=== PATIENT | female | born 1945 | race Caucasian/White ===

== ENCOUNTER → 2019-11-24 14:47 | Outpatient (BNVA) | payer MEDICARE, SELFPAY | PROVIDERS: Family Provider Internal Medicine; PCP Internal Medicine; Visit Provider Nurse Practitioner | DX: G89.29 Other chronic pain (principal); M54.5 Low back pain; Z79.891 Long term (current) use of opiate analgesic | CPT/HCPCS: 99214 ==

== ENCOUNTER → 2019-12-11 16:39 | Outpatient (BNVA) | payer MEDICARE, SELFPAY | PROVIDERS: Family Provider Internal Medicine; PCP Internal Medicine; Visit Provider Internal Medicine | DX: R42 Dizziness and giddiness (principal); E03.9 Hypothyroidism, unspecified | CPT/HCPCS: 80053; 83036; 84443; 85025 ==

== ENCOUNTER 2019-12-19 09:48 | Outpatient (CLI) | payer MEDICARE, SELFPAY ==
--- NOTE | 2019-12-19 09:30 | MR_ITS ---
WS: [id number] MRI HEAD WITH CONTRAST TECHNIQUE: Sagittal T1, T2 axial, T2 axial FLAIR, axial susceptibility weighted imaging, axial diffus ion weighted images, and coronal T2 images were obtained. Pre and post-T1 axial and post T1 coronal i mages. ADC and FSPGR images. CLINICAL INFORMATION: dizziness of unknown cause COMPARISON: MRI 2012 and MRV 2014 FINDINGS: No evidence of restricted diffusion to suggest acute ischemia. Ventricular system and basal cisterns are patent. Mild small vessel changes with moderate parenchymal volume loss. Small vessel changes are relatively stable since 2013. Tiny chronic lacunar infarct left cerebellum. Normal vascular flow voi ds at the skull base. No extra axial fluid collections. Mild mucosal thickening in the ethmoid air ce lls. Paranasal sinuses are well aerated. Mild mucosal thickening left mastoid air cells. No hemosiderin on susceptibly weighted images. No abnormal gadolinium enhancement. Normal optic chias m and pituitary infundibulum. No abnormal intracranial enhancement. Normal sella. Chronic changes of prior right transverse sinus thrombosis previously discussed. Dural sinuses are otherwise normal. MR/MR head wo/w con [id number] IMPRESSION: 1. No evidence of restricted diffusion to suggest acute ischemia. 2. Mild small vessel changes with moderate parenchymal volume loss relatively stable since 2012. 3. Tiny chronic lacunar infarct left cerebellum. 4. Paranasal sinuses are well aerated with trace mucosal thickening in the eth moid air cells. Mild mucosal thickening left mastoid tip. 5. No abnormal gadolinium enhancement. 6. 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 Dural venous sinuses otherwise appear patent.
== END 2019-12-19 09:49 | disposition home or self-care (01) ==
LOC: RADSHAW 09:50
PROVIDERS: Family Provider Internal Medicine; PCP Internal Medicine; Visit Provider Internal Medicine
DX: I63.9 Cerebral infarction, unspecified (principal); G08 Intracranial and intraspinal phlebitis and thrombophlebitis; R42 Dizziness and giddiness
CPT/HCPCS: 70553; A9579

== ENCOUNTER → 2020-01-11 09:51 | Outpatient (BNVA) | payer MEDICARE, SELFPAY | PROVIDERS: Family Provider Internal Medicine; PCP Internal Medicine; Visit Provider Otolaryngology | DX: R42 Dizziness and giddiness (principal) | CPT/HCPCS: 99203; 99214 ==

== ENCOUNTER → 2020-01-25 08:40 | Outpatient (BNVA) | payer MEDICARE, SELFPAY | PROVIDERS: Family Provider Internal Medicine; PCP Internal Medicine; Visit Provider Anesthesiology | DX: G89.29 Other chronic pain (principal); M54.5 Low back pain; M54.9 Dorsalgia, unspecified; R20.0 Anesthesia of skin; Z71.89 Other specified counseling; Z79.891 Long term (current) use of opiate analgesic | CPT/HCPCS: 62323; 99214; J2001 ==

== ENCOUNTER → 2020-02-15 14:23 | Outpatient (BNVA) | payer MEDICARE, SELFPAY | PROVIDERS: Family Provider Internal Medicine; PCP Internal Medicine; Referring Provider Otolaryngology; Visit Provider Nurse Practitioner | DX: R42 Dizziness and giddiness (principal); R51 Headache; Z87.891 Personal history of nicotine dependence | CPT/HCPCS: 99214; 99999 ==

== ENCOUNTER 2020-02-22 10:05 | Outpatient (CLI) | payer MEDICARE, SELFPAY ==
--- NOTE | 2020-02-22 10:30 | CT_ITS ---
WS: [id number] CT ANGIOGRAM CEREBRAL AND CAROTID ARTERIES CT head, noncontrast HISTORY: DIZZINESS TECHNIQUE: CT angiogram is performed of the carotid and cerebral arteries. During arterial injection imaging is obtained from the skull vertex to the aortic arch in 1.25 mm imaging. Coronal and sagittal reformats are submitted. Additional multi planar reformats of the carotid and cerebral arteries are submitted, MIP imaging also reviewed. NASCET criteria utilized. All CT scans at [facility] use at least one of these dose optimization techniques: automated exposure control; mA and/or kV ad justment per patient size (includes targeted exams where dose is matched to clinical indication); or iterative reconstruction. CONTRAST: Omnipaque 350; 95 mL IV. DLP: 1871.79 mGycm COMPARISON: 02/17/[address] head. No acute intracranial hemorrhage. Basal ganglia calcifications with atrophy and mild chronic microvas cular ischemic disease. Ventricles are normal size. Carotid Angiogram: Right carotid: Common carotid artery: Arises normally from the innominate. Common carotid artery is tortuous minimal calcified plaque at the bifurcation. Internal carotid artery: Calcified plaque at bifurcation. Proximal RIGHT ICA stenosis 44%. Very mild progression since the prior study. External carotid artery: Patent. Left carotid: Common carotid artery: Arises from the base of the innominate. Tortuous common carotid artery. Internal carotid artery: Calcification at the bifurcation. Stenosis 57% involving the origin of the I CA. External carotid artery: Patent. Right vertebral artery: RIGHT vertebral artery is small caliber throughout with no occlusion. Left vertebral artery: Normal size with no occlusion or significant stenosis. Subclavian arteries: No stenosis or significant abnormality. Upper thorax: Atherosclerosis aortic arch and the coronary arteries. Lungs are clear. Thyroid gland: Normal. Osseous structures: Straightening of the normal cervical lordosis with spondylosis. CEREBRAL ANGIOGRAM: Intracranial vertebral arteries: RIGHT vertebral artery is small caliber but patent. Basilar artery: No significant stenosis or occlusion. No aneurysm. Intracranial Internal carotid arteries: Minimal calcified plaque through the cavernous sinuses. No oc clusion. Middle cerebral arteries: Normal. Anterior cerebral arteries and ACOM: Normal. Posterior cerebral arteries and PCOM's: Normal. No significant filling defects in the dural venous sinuses. Mastoid air cells: Normal. Paranasal sinuses: Normal. Calvarium: Normal. CT/CT angio headneck* [id number] IMPRESSION: 1. LEFT ICA stenosis 57% with mild progression since 2012. 2. RIGHT ICA stenosis 43% with minimal progression since the prior study. 3. Very mild atherosclerosis intracranial carotid arteries. No significant aryan nosis.
[2020-02-22 11:11] LABS: Blood Urea Nitrogen 18 mg/dL (8-23)
[2020-02-22] MEDS: iohexol 350 mg/mL 100 mL Btl IV (11:26)
== END 2020-02-22 10:06 | disposition home or self-care (01) ==
LOC: RADWPI 10:10
PROVIDERS: Family Provider Internal Medicine; PCP Internal Medicine; Visit Provider Nurse Practitioner
DX: R42 Dizziness and giddiness (principal); I65.23 Occlusion and stenosis of bilateral carotid arteries
CPT/HCPCS: 70496; 70498; 82565; 84520; Q9967

== ENCOUNTER → 2020-03-13 15:25 | Outpatient (BNVA) | payer MEDICARE, SELFPAY | PROVIDERS: Family Provider Internal Medicine; PCP Internal Medicine; Visit Provider Nurse Practitioner | DX: G43.909 Migraine, unspecified, not intractable, without status migrainosus (principal); R42 Dizziness and giddiness | CPT/HCPCS: 99213; 99999 ==

== ENCOUNTER 2020-04-26 10:28 | Outpatient (CLI) | payer MEDICARE, SELFPAY ==
[2020-04-26 10:55] LABS: Basophils # 0.1 10^3/uL (0.0-0.1); Basophils % 1.2 %; Eosinophils # 0.2 10^3/uL (0.0-0.8); Eosinophils % 2.4 %; Hemoglobin 13.3 g/dL (11.5-15.3); Lymphocytes # 2.6 10^3/uL (0.8-4.8); Lymphocytes % 34.9 %; Mean Corpuscular HGB Conc 33.3 g/dL (30.0-36.0); Mean Corpuscular Hemoglobin 30.9 pg (28.0-34.0); Mean Corpuscular Volume 92.8 fL (81-99); Mean Platelet Volume 10.9 fL (7.4-10.4); Monocytes # 0.7 10^3/uL (0.2-0.9); Monocytes % 9.1 %; Neutrophils # 3.9 10^3/uL (1.8-7.7); Neutrophils % 52.3 %; Nucleated Red Blood Cells % 0 %; Platelet Count 258 10^3/cmm (130-400); Red Blood Count 4.31 10^6/uL (4.1-5.3); Red Cell Distribution Width 12.1 % (12.1-15.1); White Blood Count 7.4 10^3/uL (4.0-10.0)
[2020-04-26 11:34] LABS: Alanine Aminotransferase 17 U/L (0-33); Albumin Level 4.5 g/dL (3.5-5.2); Alkaline Phosphatase 66 IU/L (35-105); Anion Gap 18.4 (5-19); Aspartate Amino Transferase 26 U/L (0-32); Blood Urea Nitrogen 20 mg/dL (8-23); Calcium 10.4 mg/dL (8.5-10.5); Carbon Dioxide 26 mmol/L (22-29); Chloride 99 mmol/L (98-107); Globulin 2.4 g/dL (1.3-4.6); Glucose 124 mg/dL (65-115); Osmolality Calculated 288 mOsm/kg (285-295); Potassium 3.4 mmol/L (3.5-5.1); Sodium 140 mmol/L (136-145); Thyroid Stimulating Hormone 4.56 uIU/mL (0.27-4.20); Total Bilirubin 0.3 mg/dL (0.15-1.2); Total Protein 6.9 g/dL (6.6-8.7); Valproic Acid Level 82.1 ug/mL (50-100)
[2020-04-26 12:08] LABS: Vitamin B12 561 pg/mL (232-1245)
== END 2020-04-26 10:29 | disposition home or self-care (01) ==
LOC: LAB 10:31
PROVIDERS: Family Provider Internal Medicine; PCP Internal Medicine; Visit Provider Nurse Practitioner
DX: R42 Dizziness and giddiness (principal)
CPT/HCPCS: 36415; 80053; 80164; 82607; 84443; 85025

== ENCOUNTER 2020-05-03 06:00 | Outpatient (RCR) | payer MEDICARE, SELFPAY | END 2020-05-24 23:59 | disposition home or self-care (01) | LOC: SPT 06:00 | PROVIDERS: PCP Internal Medicine; Referring Provider Nurse Practitioner; Visit Provider Nurse Practitioner | DX: R42 Dizziness and giddiness (principal) | CPT/HCPCS: 95992; 97162 ==

== ENCOUNTER → 2020-05-13 10:59 | Outpatient (BNVA) | payer MEDICARE, SELFPAY | PROVIDERS: PCP Internal Medicine; Visit Provider Specialist | DX: G08 Intracranial and intraspinal phlebitis and thrombophlebitis (principal); R42 Dizziness and giddiness | CPT/HCPCS: 99215 ==

== ENCOUNTER 2020-05-25 06:00 | Outpatient (RCR) | payer MEDICARE, SELFPAY | END 2020-06-24 23:59 | disposition home or self-care (01) | LOC: SPT 06:00 | PROVIDERS: PCP Internal Medicine; Referring Provider Nurse Practitioner; Visit Provider Nurse Practitioner | DX: R42 Dizziness and giddiness (principal) | CPT/HCPCS: 95992 ==

== ENCOUNTER 2020-06-28 09:21 | Emergency (ER) | payer MEDICARE, SELFPAY ==
[2020-06-28 09:32] VITALS: BP 141/62; PULSE 80; RESP 16; TEMP 36.8; O2SAT 97; BMI 34.2
--- NOTE | 2020-06-28 09:50 | ECG_ITS ---
[facility] Test Date: 2020-06-28 Pat Name: Pratik Portillo Department: Room: Gender: Female Aco Coordinator: : 1945 Requested By: Corky Ramos Order Number: [id number] Earnest MD: Rikki Stark M.D. Measurements Intervals [place] Rate: 79 P: 11 [place]: 164 QRS: -53 QRSD: 100 T: 9 QT: 384 QTc: 442 Interpretive Statements SINUS RHYTHM S1-S2-S3 PATTERN, CONSISTENT WITH PULMONARY DISEASE, RVH, OR NORMAL VARIANT INCOMPLETE RIGHT BUNDLE BRANCH BLOCK [90+ ms QRS DURATION, TERMINAL R IN V1/V2, 40+ ms S IN I/aVL/V4/V5/V6] LEFT ANTERIOR FASCICULAR BLOCK [QRS AXIS <= -45, QR IN I, RS IN II] POSSIBLE ANTERIOR MYOCARDIAL INFARCTION , OF INDETERMINATE AGE [30 ms Q WAVE IN V3/V4, OR R < 0.2 mV IN V4] Compared to ECG 08/06/2017 11:30:03 Right ventricular hypertrophy now present Left anterior fascicular block now present Sinus arrhythmia no longer present Left-axis deviation no longer present Myocardial infarct finding still present Electronically Signed On 06-28-2020 21:13:57 CDT by Rikki Stark M.D. [id number]
--- NOTE | 2020-06-28 09:50 | XR_ITS ---
WS: [id number] Portable AP upright chest, 06/28/2020 Clinical Data: cough Comparison: PA and lateral chest, 02/27/2016. Findings: There is a minimal peripheral patchy opacity in the right upper lobe. No nodules, masses or effusions are seen. The heart is enlarged. The pulmonary vascularity is not increased. No pneumothor ax is seen. XR/XR chest 1V portable [id number] Impression: 1. Minimal patchy opacity in right upper lobe which could represent atelectasis or early pneumonia and recommend repeat chest x-ray in one to 2 days. 2. Poor inspiratory effort causing cardiomegaly..
--- NOTE | 2020-06-28 10:23 | ED_ITS ---
HPI - Nausea/Vomiting/Diarrhea General: Chief complaint: Nausea/Vomiting/Diarrhea Stated complaint: n/v , sore on bottom Time Seen by Provider: 06/28/20 09:23 History of Present Illness: HPI Narrative: 75-year-old female presents emergency room with complaint of decreased appetite for the last 2 weeks she is not had a fever but has had a slightly productive cough no abdominal pain or chest pain increasing rhinorrhea she is also had some anosmia. She has dyspnea on exertion with vomiting and diarrhea moderate nausea. She is not been taking any of her medications for the last 2 weeks because of the nausea. Her lives with her has not been ill recently she has no chronic respiratory illnesses. MD elicited complaint: nausea, vomiting and diarrhea Onset (ago): week(s) (2) Description of vomiting: food contents and bilious Description of diarrhea: semi-solid and lose Associated nausea: Yes Associated abdominal pain: No Severity: moderate Quality: cramping Exacerbating factors: eating Relieving factors: none Associated symtoms: Reports cough, fatigue, anorexia, malaise, myalgias, nausea and weakness; Denies altered mental status, anxiety, bloating, change in vision, chest pain, diaphoresis, decreased urine output, dizziness, dysuria, epistaxis, fecal incontinence, fevers/chills, headache(s), palpitations, rash, short of breath, syncope, tenesmus or tinnitus Review of Systems Const: Reports: fatigue and malaise; Denies: diaphoresis Eyes: Denies: change in vision ENMT: Denies: tinnitus or epistaxis Card: Denies: chest pain, palpitations or syncope Resp: Reports: productive cough; Denies: dyspnea or non-productive cough GI: Reports: nausea; Denies: bloating or fecal incontinence : Denies: dysuria Skin/Breast: Denies: rash or pruritus Neuro: Denies: headache(s) or dizziness Psych: Denies: anxiety PFSH ED PFSH: Medical History Back pain associated with peripheral numbness Chronic low back pain Dizziness Essential hypertension with goal blood pressure less than 130/80 Long-term current use of opiate analgesic Morbid obesity Pain management contract signed Primary osteoarthritis of right knee Sleep apnea, obstructive Surgical History Hx of hysterectomy Hx of knee surgery (~03/03/16) TOTAL RIGHT KNEE REPLACEMENT 03/03/16- DR TORRES ARTHROSCOPIC KNEE SURGERY RIGHT SIDE- 05/16/14 DR BLAND TKA LT KNEE 2006 DR ALISHA DOW- [place] Family History Family/Other Cancer AUNT - BREAST CANCER Father Cancer MELANOMA Hypertension CAD (coronary artery disease) Other Bipolar 1 disorder Denies family history of Anesthesia complication Bleeding disorder Social History Smoking and tobacco status: former smoker History of recent travel: No Physical Exam Const: COMMON NORMALS: no acute distress EXAM LIMITATIONS: no altered mental status GENERAL APPEARANCE: cooperative and comfortable ORIENTATION/CONSCIOUSNESS: Yes awake, Yes oriented to person, Yes oriented to place and Yes oriented to time HENMT: COMMON NORMALS: normocephalic, atraumatic and hearing grossly normal bilaterally HEAD & SCALP: normocephalic and atraumatic Eye: COMMON NORMALS: Equal, round and reactive pupils present, EOMs intact bilaterally, conjunctivae normal and no scleral icterus CONJUNCTIVA: Yes conjunctivae normal PUPIL: Yes Equal, round and reactive pupils present Neck/C-Spine: COMMON NORMALS: full ROM, no lymphadenopathy, supple and no JVD Lymph: LYMPHATIC: no lymphadenopathy noted and no lymphedema noted Resp: COMMON NORMALS: normal respiratory effort, No retractions, No use of accessory muscles and clear to auscultation bilaterally AUSCULTATION: clear to auscultation bilaterally Cardio: COMMON NORMALS: no JVD, regular rate, regular rhythm and No murmurs present (Cardio) RATE: regular rate RHYTHM: regular rhythm GI: COMMON NORMALS: Soft to palpation and No hepatosplenomegaly present AUSCULTATION: Yes normoactive bowel sounds PALPATION: Yes Soft to palpation, No Tenderness to palpation present (GI), No Guarding due to palpation present (GI) and Yes No hepatosplenomegaly present OTHER: Excoriations and irritations perirectal no rectal fissures no rectal abscesses there are shallow ulcerations without evidence of abscess or localized infection. Extremity: COMMON NORMALS: normal to inspection, capillary refill normal, no clubbing, cyanosis or edema, no calf tenderness and no pedal edema Neuro: SENSORIUM/ORIENTATION: Yes oriented to person, Yes oriented to place and Yes oriented to time Skin: COMMON NORMALS: no rashes or lesions noted GENERAL SKIN EXAM: no rashes or lesions noted Course Vital Signs: Vital signs: Vital Signs Temperature 98.3 F 06/28/20 09:32 Pulse Rate 77 06/28/20 12:56 Respiratory Rate 15 06/28/20 12:56 Blood Pressure 110/63 06/28/20 12:56 Pulse Oximetry 95 06/28/20 12:56 MDM - Nausea/Vomiting/Diarrhea MDM Narrative: Medical decision making narrative: Suspect she does have COVID- 19. We will go ahead and discharge her home however we are waiting on her PCR. Suspect she is already through the worst of them getting started on Levaquin to cover for secondary bacterial infection. Asked her to maintain quarantine until the COVID test returns. If she has any worsening problems return. She does have some ulcerations around the rectum did not appear to be acutely infected would recommend topical [id number] emollients to protect and promote healing. Lab Data: Labs: Lab Results 06/28/20 06/28/20 06/28/20 Range/Units 10:34 10:34 10:34 WBC 7.5 (4.0-10.0) 10^3/ uL RBC 3.83 L (4.1-5.3) 10^6/u L Hgb 11.6 (11.5-15.3) g/dL Hct 34.8 L (37.0-47.0) % MCV 90.9 (81-99) fL MCH 30.3 (28.0-34.0) pg MCHC 33.3 (30.0-36.0) g/dL RDW 12.7 (12.1-15.1) % Plt Count 314 (130-400) 10^3/c mm MPV 11.2 H (7.4-10.4) fL Neut % (Auto) 76.1 % Lymph % (Auto) 15.1 % [facility] % (Auto) 7.3 % Eos % (Auto) 0.7 % Baso % (Auto) 0.3 % Neut # (Auto) 5.73 (1.8-7.7) 10^3/u L Lymph # (Auto) 1.1 (0.8-4.8) 10^3/u L [facility] [place] [facility] # (Auto) 0.6 (0.2-0.9) 10^3/u L Eos # (Auto) 0.1 (0.0-0.8) 10^3/u L Baso # (Auto) 0.0 (0.0-0.1) 10^3/u L Nucleated RBC % (a uto) 0 % Nucleated RBCs # 0.0 /100WBC Fibrinogen 752 H (174-498) mg/dL D-Dimer 0.60 H (0-0.59) ug/mIFE U Sodium 139 (136-145) mmol/L Potassium 3.1 L (3.5-5.1) mmol/L Chloride 102 (98-107) mmol/L Carbon Dioxide 24 (22-29) mmol/L Anion Gap 16.1 (5-19) BUN 12 (8-23) mg/dL Creatinine 0.8 (0.5-0.9) mg/dL GFR Calculation Not Reportable Glucose 129 H (65-115) mg/dL Calculated Osmolal ity 286 (285-295) mOsm/k g Lactic Acid (0.5-2.2) mmol/L Calcium 8.3 L (8.5-10.5) mg/dL Ferritin 300 H (15-150) ng/mL Total Bilirubin 0.5 (0.15-1.2) mg/dL AST 54 H (0-32) U/L ALT 46 H (0-33) U/L Alkaline Phosphata se 82 (35-105) IU/L Lactate Dehydrogen ase 317 H (135-214) U/L C-Reactive Protein 61.7 H (0.0-4.9) mg/L Total Protein 6.5 L (6.6-8.7) g/dL Albumin 3.8 (3.5-5.2) g/dL Globulin 2.7 (1.3-4.6) g/dL Procalcitonin 0.07 (0-0.5) ng/mL SARS-CoV-2 RNA (RT -PCR) (NOT DETECTED) 06/28/20 06/28/20 Range/Units 10:34 10:34 WBC (4.0-10.0) 10^3/ uL RBC (4.1-5.3) 10^6/u L Hgb (11.5-15.3) g/dL Hct (37.0-47.0) % MCV (81-99) fL MCH (28.0-34.0) pg MCHC (30.0-36.0) g/dL RDW (12.1-15.1) % Plt Count (130-400) 10^3/c mm MPV (7.4-10.4) fL Neut % (Auto) % Lymph % (Auto) % [facility] [place] [facility] % (Auto) % Eos % (Auto) % Baso % (Auto) % Neut # (Auto) (1.8-7.7) 10^3/u L Lymph # (Auto) (0.8-4.8) 10^3/u L [facility] # (Auto) (0.2-0.9) 10^3/u L Eos # (Auto) (0.0-0.8) 10^3/u L Baso # (Auto) (0.0-0.1) 10^3/u L Nucleated RBC % (a uto) % Nucleated RBCs # /100WBC Fibrinogen (174-498) mg/dL D-Dimer (0-0.59) ug/mIFE U Sodium (136-145) mmol/L Potassium (3.5-5.1) mmol/L Chloride (98-107) mmol/L Carbon Dioxide (22-29) mmol/L Anion Gap (5-19) BUN (8-23) mg/dL Creatinine (0.5-0.9) mg/dL GFR Calculation Glucose (65-115) mg/dL Calculated Osmolal ity (285-295) mOsm/k g Lactic Acid 1.7 (0.5-2.2) mmol/L Calcium (8.5-10.5) mg/dL Ferritin (15-150) ng/mL Total Bilirubin (0.15-1.2) mg/dL AST (0-32) U/L ALT (0-33) U/L Alkaline Phosphata se (35-105) IU/L Lactate Dehydrogen ase (135-214) U/L C-Reactive Protein (0.0-4.9) mg/L Total Protein (6.6-8.7) g/dL Albumin (3.5-5.2) g/dL Globulin (1.3-4.6) g/dL Procalcitonin (0-0.5) ng/mL SARS-CoV-2 RNA (RT -PCR) Detected A (NOT DETECTED) Discharge Plan Discharge Patient Disposition: Home Clinical Impression: Suspected COVID-19 virus infection Condition: Stable Prescriptions: New levofloxacin 750 mg tablet 750 mg PO DAILY 7 Days Qty: 7 RF: 0 No Action [id number]-[id number]-[id number]-C-Mn 500-400-667 mg-mg-unit capsule PO .Q DAY RF: 0 magnesium oxide 500 mg tablet 500 mg PO QDAY RF: 0 Restasis 0.05 % dropperette 1 drop ophthalmic (eye) Q12H RF: 0 cranberry conc-ascorbic acid 4,200-20 mg capsule PO RF: 0 Complete Multivitamin Tablet 1 tab PO QDAY RF: 0 indomethacin 75 mg capsule, extended release 75 mg PO DAILY Qty: 14 RF: 0 venlafaxine 75 mg capsule,extended release 24hr 150 mg PO QAM Qty: 60 RF: 5 losartan 100 mg tablet 100 mg PO DAILY Qty: 90 RF: 3 levothyroxine 50 mcg tablet 50 mcg PO QDAY Qty: 90 RF: 3 metformin 500 mg tablet,ER jhon.retention 24 hr 2,000 mg PO .WITH LARGEST MEAL MDD 4 Qty: 360 RF: 3 pseudoephedrine HCl [Sudafed 12 Hour] 120 mg tablet extended release 120 mg PO DAILY PRN (Reason: nasal congestion) Qty: 30 RF: 3 lansoprazole 30 mg capsule,delayed release(DR/EC) 30 mg PO BID 90 Days Qty: 180 RF: 0 celecoxib [Celebrex] 200 mg capsule 200 mg PO BID Qty: 180 RF: 0 atorvastatin 40 mg tablet 40 mg PO DAILY Qty: 30 RF: 2 lorazepam [Ativan] 0.5 mg tablet 1.5 mg PO DAILY PRN (Reason: anxiety) Qty: 3 RF: 0 pregabalin [Lyrica] 50 mg capsule 50 mg PO TID Qty: 90 RF: 3 clobetasol 0.05 % gel 1 applic TOPICAL DAILY PRN (Reason: vulvitis) Qty: 60 RF: 2 tizanidine [Zanaflex] 4 mg capsule 4 mg PO Q6H PRN (Reason: muscle spasticity) Qty: 30 RF: 0 Zofran 4 mg tablet 4 mg PO Q6H PRN (Reason: nausea and vomiting) Qty: 20 RF: 0 Discharge Orders: Discharge Order (Routine); Ordered 06/28/20 Ordered By: Corky Braden Referrals: Kendrick Villaseñor MD [Primary Care Provider] - Discharge Diet: Usual diet Discharge Activity: Increase activity as tolerated Activity Restrictions/Additional Instructions: Maintain quarantine until we call with the results of your COVID testing. Discharge Date/Time: 06/28/20 12:57 Coding Level of Care Code ED Clinical Pharmacist for Chg Fwd Exam Comprehensive
[2020-06-28 10:39] VITALS: BP 119/64; PULSE 80; RESP 18; O2SAT 98
[2020-06-28 10:53] LABS: Basophils % 0.3 %; Eosinophils # 0.1 10^3/uL (0.0-0.8); Eosinophils % 0.7 %; Hematocrit 34.8 % (37.0-47.0); Hemoglobin 11.6 g/dL (11.5-15.3); Lymphocytes # 1.1 10^3/uL (0.8-4.8); Lymphocytes % 15.1 %; Mean Corpuscular HGB Conc 33.3 g/dL (30.0-36.0); Mean Corpuscular Hemoglobin 30.3 pg (28.0-34.0); Mean Corpuscular Volume 90.9 fL (81-99); Mean Platelet Volume 11.2 fL (7.4-10.4); Monocytes # 0.6 10^3/uL (0.2-0.9); Monocytes % 7.3 %; Neutrophils # 5.73 10^3/uL (1.8-7.7); Neutrophils % 76.1 %; Nucleated Red Blood Cells % 0 %; Platelet Count 314 10^3/cmm (130-400); Red Blood Count 3.83 10^6/uL (4.1-5.3); Red Cell Distribution Width 12.7 % (12.1-15.1); White Blood Count 7.5 10^3/uL (4.0-10.0)
[2020-06-28 11:09] LABS: Lactic Sepsis W/Reflex 1.7 mmol/L (0.5-2.2)
[2020-06-28 11:15] LABS: Procalcitonin 0.07 ng/mL (0-0.5)
[2020-06-28 11:24] VITALS: BP 110/63; PULSE 77; RESP 15; O2SAT 95
[2020-06-28 11:26] LABS: Alanine Aminotransferase 46 U/L (0-33); Albumin Level 3.8 g/dL (3.5-5.2); Alkaline Phosphatase 82 IU/L (35-105); Anion Gap 16.1 (5-19); Aspartate Amino Transferase 54 U/L (0-32); Blood Urea Nitrogen 12 mg/dL (8-23); C Reactive Protein 61.7 mg/L (0.0-4.9); Calcium 8.3 mg/dL (8.5-10.5); Carbon Dioxide 24 mmol/L (22-29); Chloride 102 mmol/L (98-107); Ferritin 300 ng/mL (15-150); Globulin 2.7 g/dL (1.3-4.6); Glucose 129 mg/dL (65-115); Osmolality Calculated 286 mOsm/kg (285-295); Potassium 3.1 mmol/L (3.5-5.1); Sodium 139 mmol/L (136-145); Total Bilirubin 0.5 mg/dL (0.15-1.2); Total Protein 6.5 g/dL (6.6-8.7)
[2020-06-28 11:30] LABS: Fibrinogen 752 mg/dL (174-498); Lactate Dehydrogenase 317 U/L (135-214)
[2020-06-28 12:30] VITALS: O2SAT 90; O2SAT 93
[2020-06-28 12:56] VITALS: BP 110/63; PULSE 77; RESP 15; O2SAT 95
[2020-06-29 21:08] LABS: Quest SARS-CoV-2 RNA DETECTED (NOT DETECTED)
== END 2020-06-28 12:57 | disposition home or self-care (01) ==
PROVIDERS: Emergency Provider Family Medicine; PCP Internal Medicine
DX: U07.1 COVID-19 (principal); I10 Essential (primary) hypertension; Z87.891 Personal history of nicotine dependence; R11.10 Vomiting, unspecified
CPT/HCPCS: 12345; 71045; 80053; 82728; 83605; 83615; 84145; 85025; 85378; 85384; 86140; 87040; 87205; 87635; 93005; 99282; 99284

== ENCOUNTER → 2020-09-09 13:42 | Outpatient (BNVA) | payer MEDICARE, SELFPAY | PROVIDERS: PCP Internal Medicine; Visit Provider Nurse Practitioner Family | DX: J06.9 Acute upper respiratory infection, unspecified (principal) | CPT/HCPCS: 87400; 87635 ==

== ENCOUNTER 2020-09-23 06:00 | Outpatient (RCR) | payer MEDICARE, SELFPAY | END 2020-09-23 23:59 | disposition home or self-care (01) | LOC: SPT 06:00 | PROVIDERS: PCP Internal Medicine; Referring Provider Internal Medicine; Visit Provider Internal Medicine | DX: R42 Dizziness and giddiness (principal) | CPT/HCPCS: 95992; 97162 ==

== ENCOUNTER 2020-09-24 06:00 | Outpatient (RCR) | payer MEDICARE, SELFPAY | END 2020-10-24 23:59 | disposition home or self-care (01) | LOC: SPT 06:00 | PROVIDERS: PCP Internal Medicine; Referring Provider Internal Medicine; Visit Provider Internal Medicine | DX: R42 Dizziness and giddiness (principal) | CPT/HCPCS: 95992 ==

== ENCOUNTER 2020-11-15 12:07 | Outpatient (CLI) | payer MEDICARE, SELFPAY ==
--- NOTE | 2020-11-15 12:14 | MM_ITS ---
WS: [id number] BILATERAL SCREENING DIGITAL MAMMOGRAM WITH CAD HISTORY: SCREEN COMPARISON: 11/12/2018 and 06/19/2015 Bilateral CC and MLO views submitted. Computer aided detection analyzed. Breast composition: There are scattered areas of fibroglandular density. No suspicious masses, microc alcifications or architectural distortion. Stable nodules and calcifications. MM/[place] [id number] IMPRESSION: BI-RADS: 2-Benign FOLLOW UP: 1 Year Follow-up
== END 2020-11-15 12:08 | disposition home or self-care (01) ==
LOC: RADSHAW 12:11
PROVIDERS: PCP Internal Medicine; Visit Provider Internal Medicine
DX: Z12.31 Encounter for screening mammogram for malignant neoplasm of breast (principal)
CPT/HCPCS: 77067

== ENCOUNTER → 2020-12-26 11:33 | Outpatient (BNVA) | payer MEDICARE, SELFPAY | PROVIDERS: PCP Internal Medicine; Visit Provider Specialist | DX: M25.561 Pain in right knee (principal); M25.562 Pain in left knee | CPT/HCPCS: 73560; 73565 ==

== ENCOUNTER → 2021-01-13 11:22 | Outpatient (BNVA) | payer MEDICARE, SELFPAY | PROVIDERS: PCP Internal Medicine; Visit Provider Specialist | DX: M25.512 Pain in left shoulder (principal) | CPT/HCPCS: 73030 ==

== ENCOUNTER → 2021-02-24 13:31 | Outpatient (BNVA) | payer MEDICARE, SELFPAY | PROVIDERS: PCP Internal Medicine; Visit Provider Specialist | DX: M19.012 Primary osteoarthritis, left shoulder (principal); M67.912 Unspecified disorder of synovium and tendon, left shoulder | CPT/HCPCS: 73030 ==

== ENCOUNTER 2021-03-18 14:54 | Outpatient (CLI) | payer MEDICARE, SELFPAY ==
--- NOTE | 2021-03-18 15:15 | MR_ITS ---
WS: [id number] MRI LEFT SHOULDER HISTORY: M19.012 - Primary osteoarthritis, left shoulder COMPARISON: 01/07/2015 TECHNIQUE: Multiplanar sequences of the shoulder joint are submitted. Mild AC joint arthritis. Narrowing of the joint space with small osteophytes. Small amount of fluid a long the AC ligament. Small 3 mm osteophyte from the distal acromion without significant encroachment . No os acromion. Biceps tendon is in normal position but there is a moderate amount of increased flu id in the biceps tendon sheath. Humeral head is high riding. Moderate narrowing of the glenohumeral joint with osteophytic ridging ar ound the humeral head extending into the glenohumeral joint. There is mild thickening and increased s ignal in the distal supraspinatus tendon. Very tiny insertion site tear cannot be excluded. No retrac tion or muscle atrophy. Abnormal signal in the anterior labrum. There is thickening of the labrum with abnormal signal throug hout the labrum. There is an adjacent cystic collection extending into the subscapularis recess which may be associated with a labral tear. MR/MR shoulder LT wo con* [id number] IMPRESSION: 1. Torn anterior labrum moderate glenohumeral joint osteoarthritis. 2. Cystic mass extends along the subscapular recess may be a labral cyst assoc iated with the labral tear. 3. Mild tendinopathy distal supraspinatus with no definite tear. 4. Mild AC joint arthritis.
== END 2021-03-18 14:55 | disposition home or self-care (01) ==
LOC: RADSHAW 15:01
PROVIDERS: PCP Internal Medicine; Visit Provider Specialist
DX: M19.012 Primary osteoarthritis, left shoulder (principal); S43.492A Other sprain of left shoulder joint, initial encounter; X58.XXXA Exposure to other specified factors, initial encounter
CPT/HCPCS: 73221

== ENCOUNTER 2021-05-26 06:00 | Outpatient (RCR) | payer MEDICARE, SELFPAY | END 2021-06-24 23:59 | disposition home or self-care (01) | LOC: SPT 06:00 | PROVIDERS: PCP Internal Medicine; Referring Provider Specialist; Visit Provider Specialist | DX: M25.512 Pain in left shoulder (principal) | CPT/HCPCS: 97110; 97161 ==

== ENCOUNTER → 2021-08-20 15:14 | Outpatient (BNVA) | payer MEDICARE, SELFPAY | PROVIDERS: PCP Internal Medicine; Visit Provider Nurse Practitioner Family | DX: Z20.822 Contact with and (suspected) exposure to COVID-19 (principal) | CPT/HCPCS: 87635 ==

== ENCOUNTER → 2022-01-08 13:39 | Outpatient (BNVA) | payer MEDICARE, SELFPAY | PROVIDERS: PCP Internal Medicine; Visit Provider Orthopaedic Surgery | DX: M54.50 Low back pain, unspecified (principal); G89.29 Other chronic pain | CPT/HCPCS: 72110 ==

== ENCOUNTER 2022-01-22 09:05 | Outpatient (CLI) | payer MEDICARE, SELFPAY ==
--- NOTE | 2022-01-22 09:16 | MM_ITS ---
WS: [id number] BILATERAL SCREENING 3D TOMOSYNTHESIS DIGITAL MAMMOGRAM WITH CAD HISTORY: SCREENING COMPARISON: 11/15/2020, 06/19/2015 Bilateral CC and MLO views submitted. Computer aided detection analyzed. Breast composition: There are scattered areas of fibroglandular density. No suspicious masses, microc alcifications or architectural distortion. Bilateral asymmetries within each breast and calcification s are stable. MM/[place] [id number] IMPRESSION: BI-RADS: 2-Benign FOLLOW UP: 1 Year Follow-up
== END 2022-01-22 09:06 | disposition home or self-care (01) ==
LOC: RADSHAW 09:08
PROVIDERS: PCP Internal Medicine; Visit Provider Internal Medicine
DX: Z12.31 Encounter for screening mammogram for malignant neoplasm of breast (principal)
CPT/HCPCS: 77063; 77067

== ENCOUNTER 2022-02-24 08:23 | Outpatient (CLI) | payer MEDICARE, SELFPAY ==
--- NOTE | 2022-02-24 08:00 | MR_ITS ---
WS: [id number] MRI LUMBAR SPINE NONCONTRAST HISTORY: M54.50 - Low back pain, unspecified COMPARISON: 07/25/2015 TECHNIQUE: Sagittal and axial multisequence imaging is submitted. Component of mild spondylosis throughout the cervical and thoracic spines with scoliosis. Cannot eval uate for disc protrusions or stenosis due to imaging only on the localizer being suboptimal. Mild increase in the lumbar lordosis. Less than 2 mm retrolisthesis of L2 and L3. 3 mm anterolisthesi s of L4. Disc spaces are mildly narrowed and desiccated throughout. No fracture or marrow edema. Most significant disc space narrowing is at L2-3. Conus terminates normally at L1-2 disc level. L1-L2: Normal. L2-L3: Diffuse annular disc bulging and mild osteophytic ridging. No focal disc protrusion. Annular d isc bulging is causing contact on the ventral thecal sac with very mild central and bilateral subarti cular recess stenosis. No foraminal stenosis. L3-L4: Mild annular disc bulging with a LEFT foraminal disc protrusion causing mild narrowing of the LEFT foramen. No contact on the exiting LEFT L3 nerve root. There is mild encroachment upon the ventr al thecal sac and narrowing of the subarticular recesses. Small amount of fluid in the facet joints. L4-L5: Diffuse annular disc bulge. Moderate ligamentum flavum hypertrophy and facet arthritis with fl uid in the facet joints. Disc osteophyte complex is broad-based in the LEFT foramen. Moderate central , bilateral subarticular recess and LEFT foraminal stenosis. Only mild stenosis on the RIGHT L5-S1: Diffuse moderate annular disc bulging. Disc is asymmetrically extending into the RIGHT foramen contacting the exiting L5 nerve root. There is also mild disc contact on the RIGHT S1 nerve root. On ly mild LEFT foraminal narrowing. Bilateral facet joint arthritis. Paravertebral soft tissues are negative. MR/MR lumbar spine wo con* [id number] IMPRESSION: 1. Moderate progression of degenerative disc disease and spondylitic changes s leny 2014. 2. Mild central and bilateral subarticular recess stenosis at L2-3 and L3-4. 3. Moderate central, bilateral subarticular recess and LEFT foraminal stenosis at L4-5 due to combination of disc and osteophyte disease. Broad-based disc pr otrusion in the LEFT foramen was not present on the prior study. 4. Mild disc contact on the S1 nerve roots bilaterally with a RIGHT foraminal disc protrusion contacting the exiting RIGHT L5 nerve root. Previously describe d RIGHT disc herniation has resolved.
== END 2022-02-24 08:24 | disposition home or self-care (01) ==
LOC: RAD 08:24
PROVIDERS: PCP Internal Medicine; Visit Provider Orthopaedic Surgery
DX: M54.50 Low back pain, unspecified (principal)
CPT/HCPCS: 72148

== ENCOUNTER → 2022-03-17 14:51 | Outpatient (BNVA) | payer MEDICARE, SELFPAY | PROVIDERS: PCP Internal Medicine; Visit Provider Orthopaedic Surgery | DX: M43.16 Spondylolisthesis, lumbar region (principal) | CPT/HCPCS: 99214 ==

== ENCOUNTER → 2022-04-06 09:34 | Outpatient (BNVA) | payer MEDICARE, SELFPAY | PROVIDERS: PCP Internal Medicine; Visit Provider Specialist | DX: S82.852A Displaced trimalleolar fracture of left lower leg, initial encounter for closed fracture (principal); S82.832A Other fracture of upper and lower end of left fibula, initial encounter for closed fracture; W18.41XA Slipping, tripping and stumbling without falling due to stepping on object, initial encounter; M25.572 Pain in left ankle and joints of left foot | CPT/HCPCS: 27780; 73562; 73610; 99215 ==

== ENCOUNTER 2022-04-06 11:09 | Outpatient (CLI) | payer MEDICARE, SELFPAY | END 2022-04-06 11:10 | disposition home or self-care (01) | LOC: SPT 11:11 | PROVIDERS: PCP Internal Medicine; Visit Provider Specialist | DX: Z46.89 Encounter for fitting and adjustment of other specified devices (principal); S82.851D Displaced trimalleolar fracture of right lower leg, subsequent encounter for closed fracture with routine healing; X58.XXXD Exposure to other specified factors, subsequent encounter | CPT/HCPCS: 27780; 97760; L4361 ==

== ENCOUNTER 2022-04-08 10:53 | Outpatient (CLI) | payer MEDICARE, SELFPAY ==
--- NOTE | 2022-04-08 11:30 | CT_ITS ---
WS: [id number] CT LEFT ANKLE, NONCONTRAST WITH 3-D IMAGING. HISTORY: fracture Technique: All CT scans at [facility] use at least one of these dose optimization techniques: automated exposure control; mA and/or kV adjustment per patient size (includes targeted exams where dose is matched to clinical indication); or iterative reconstruction. DLP: 125.15 mGy.cm COMPARISON: Ankle radiograph 04/06/2022. Moderately comminuted fracture involving the medial malleolus. There are multiple bony fragments in t he soft tissues along the medial ankle with an oblique fracture through the medial malleolus. Additio nal comminuted fracture from the lateral distal tibia. Vertical fracture in the posterior tibia displ aced by 6 mm. There is also evidence for partial subluxation at the tibiotalar joint. There is wideni ng of the normal ankle mortise greatest anteriorly. The distal fibula does appear intact. No calcaneal or talar fracture identified. Moderate amount of soft tissue edema surrounding the ankle. CT/CT ankle LT wo con* [id number] IMPRESSION: 1. Markedly comminuted fracture involving the medial malleolus with multiple s mall associated fragments in the soft tissue. 2. Displaced posterior malleolus fracture by 6 mm. 3. Widening of the ankle mortise with partial subluxation. 4. Additional avulsion fracture from the lateral distal tibia.
== END 2022-04-08 10:54 | disposition home or self-care (01) ==
LOC: RAD 10:58
PROVIDERS: PCP Internal Medicine; Visit Provider Specialist
DX: S82.853A Displaced trimalleolar fracture of unspecified lower leg, initial encounter for closed fracture (principal); X58.XXXA Exposure to other specified factors, initial encounter
CPT/HCPCS: 73700

== ENCOUNTER 2022-04-10 06:18 | Day surgery (SDC) | payer MEDICARE, SELFPAY ==
[2022-04-09 11:07] VITALS: BMI 33.0
[2022-04-10] VITALS (13 sets, daily range): BP systolic 98–174; BP diastolic 61–96; PULSE 67–77; RESP 17–18; TEMP 36.6–36.7; O2SAT 94–100
--- NOTE | 2022-04-10 | SCC_ITS ---
Procedure done: Open Reduction Internal Fixaiton Left Trimalleolar Ankle fracture with syndesmotic fixation 319.0 seconds of fluoroscopic guidance, for a cumulative dose of 6.68 mGy, was provided to Dr. Browning by the radiology department. C-arm images of the left ankle were saved for the patient's permanent record. [facility]
[2022-04-10] MEDS: sodium chloride 0.9% 1,000 ML 30 ML IV (06:40)
[2022-04-10] MEDS: acetaminophen 1,000 MG/100 ML PIGGYBACK 400 MG IV (06:45)
[2022-04-10] MEDS: CELEcoxib 200 mg Capsule 400 MG PO (06:50)
[2022-04-10 07:00] LABS: Glucose Point of Care 134 mg/dL (70-110)
--- NOTE | 2022-04-10 07:16 | ANES.PREANE2 ---
Pre-Anesthetic Assessment Height/Weight: Height 1.55 m Weight 79.379 kg Preop Diagnosis: Left trimalleolar ankle fracture dislocation with syndesmotic disruption Operation Date: 04/10/22 07:00 Proposed Procedures p Orif left trimalleolar fracture, 99410,S82.850Q(Left) - Daria Browning MD Familial anesthetic complications: None Was Beta Lorin taken within 24 hours: N/A Was Clonidine taken within 24 hours: N/A Last intake: Intake Last Liquid Date 04/09/22 Last Solid Date 04/09/22 Last Solid Time 19:00 Social No alcohol and No tobacco Exam alert, oriented x 3, clear to auscultation bilaterally and regular rate & rhythm Airway Submandibular: within normal limits Cervical ROM: within normal limits Mallampati: Class III Dentition: chipped Pulmonary Sleep Apnea CV/HEM Hypertension GI Gastroesophageal Reflux Disease Metabolic Diabetes Mellitus, Morbid Obesity and Thyroid Disease Musc/skel Lower Back Pain and Osteoarthritis/DJD Anesthetic Plan ASA status: 3 Anesthesia: General and Regional (specify below) (discussed popliteal nerve blk for postop pain) Medications/Allergies Home Medications Medication Instructions Recorded Confirmed Last Taken Type glucosamine 500 1 cap PO BEDTIME cap 11/23/19 04/10/22 04/09/22 History th-wbhvbeqzt-twmyyejs comp 400 mg-D3 667 unit-C-Mn cap magnesium oxide 500 mg tablet 500 mg PO QDAY 11/23/19 04/10/22 04/09/22 History cranberry concentrate-ascorbic 1 cap PO BEDTIME 11/24/19 04/10/22 04/09/22 History acid 4,200 mg-20 mg capsule multivitamin,tz-gtfm-ikesxuaa 1 tab PO QDAY 11/24/19 04/10/22 04/09/22 History (Complete Multivitamin) tizanidine 4 mg capsule (Zanaflex) 4 mg PO Q6H PRN #30 cap 07/02/20 04/09/22 Unknown Rx CPAP #1 ea 03/25/21 04/09/22 Unknown Rx amlodipine 2.5 mg tablet 2.5 mg PO DAILY #90 tab 11/26/21 04/10/22 04/09/22 Rx atorvastatin 40 mg tablet 40 mg PO DAILY #90 tab 11/26/21 04/10/22 04/09/22 Rx celecoxib 200 mg capsule (Celebrex) 200 mg PO BID #180 cap 11/26/21 04/10/22 04/09/22 Rx lansoprazole 30 mg capsule,delayed 30 mg PO BID 90 Days #180 cap 11/26/21 04/10/22 04/09/22 Rx release levothyroxine 50 mcg tablet 50 mcg PO QDAY #90 tab 11/26/21 04/10/22 04/09/22 Rx losartan 100 mg tablet 100 mg PO DAILY #90 tab 11/26/21 04/10/22 04/09/22 Rx metformin 500 mg 24 hr 2,000 mg PO .WITH LARGEST MEAL 11/26/21 04/10/22 04/09/22 Rx tablet,extended release #360 tab MDD 4 pregabalin 50 mg capsule (Lyrica) 50 mg PO TID #90 cap 11/26/21 04/09/22 Unknown Rx venlafaxine 75 mg capsule,extended 150 mg PO QAM #180 cap 11/26/21 04/09/22 Unknown Rx release 24 hr pseudoephedrine HCl 120 mg 120 mg PO DAILY PRN #30 tab 01/27/22 04/09/22 Unknown Rx tablet,extended release (Sudafed 12 Hour) CAM walker #1 ea 04/06/22 04/09/22 Unknown Rx wheel chair with elevated foot rest #1 ea 04/06/22 04/09/22 Unknown Rx Allergies Allergy/AdvReac Type Severity Reaction Status Date / Time tetracycline AdvReac Intermediate HEADACHE Verified 04/09/22 10:55 AND NAUSEA lidocaine AdvReac Mild LYUDMILA Verified 04/09/22 10:55 IN GENERAL PALPATATIONS Current Medications Generic Name Dose Route Start Last Admin Trade Name Freq PRN Reason Stop Dose Admin Sodium Chloride 1,000 mls @ 30 mls/hr 04/10/22 06:45 04/10/22 06:40 Sodium Chloride 0.9% IV 04/11/22 06:44 30 mls/hr .Q24H BARNEY Administration PFSH Anesthesia Medical History Back pain associated with peripheral numbness Chronic low back pain Dizziness Essential hypertension with goal blood pressure less than 130/80 Long-term current use of opiate analgesic Morbid obesity Pain management contract signed Primary osteoarthritis of right knee Sleep apnea, obstructive Type 2 diabetes mellitus Surgical History Hx of hysterectomy Hx of knee surgery (~03/03/16) TOTAL RIGHT KNEE REPLACEMENT 03/03/16- DR BROWNING ARTHROSCOPIC KNEE SURGERY RIGHT SIDE- 05/16/14 DR BLAND TKA LT KNEE 2006 DR ALISHA DOW- [place] Family History Family/Other Cancer AUNT - BREAST CANCER Father Cancer MELANOMA Hypertension CAD (coronary artery disease) Other Bipolar 1 disorder Denies family history of Anesthesia complication Bleeding disorder Social History Smoking and tobacco status: former smoker History of recent travel: No Data Anesthesia Cardiac Studies: Holter Monitor 04/19/20
--- NOTE | 2022-04-10 07:22 | P.HPUD_ITS ---
Surgery/Procedure H&P Update DATE OF PROCEDURE: April 10, 2022 DATE H&P PERFORMED: 04/06/22 H&P UPDATE INFORMATION: I have reviewed H&P completed within last 30 days, I have examined patient prior to procedure, No changes to prior documentation and H&P is in [facility] EMR on date indicated PREOP DIAGNOSIS: Left trimalleolar ankle fracture dislocation with syndesmotic disruption PLANNED PROCEDURE: Operation Date: 04/10/22 07:00 Proposed Procedures p Orif left trimalleolar fracture, 51291,S82.853A(Left) - Daria Browning MD Related Problem List Diagnoses (1) Displaced trimalleolar fracture of left lower leg, initial encounter for closed fracture: (2) Other fracture of upper and lower end of left fibula, initial encounter for closed fracture: (3) Fracture of lateral malleolus of left fibula at syndesmosis:
[2022-04-10 08:27] LABS: Add Urine Microscopic? YES; Bilirubin Urine 1+ (Negative); Blood Urine Neg (Negative); Glucose Urine UA Norm (Normal); Ketones Urine Negative (Negative); Leukocyte Esterase Urine 2+ (Negative); Nitrate Urine Negative (Negative); Protein Urine Neg (Negative); Urine Appearance Clear (CLEAR); Urine Color Dark Yellow (Yellow); Urobilinogen Urine Norm (Negative); pH Urine 5 (5-7)
[2022-04-10 08:28] LABS: Add Urine Culture? No; Bacteria Urine 1+ /hpf; Squamous Epithelial Cell Urine 15-25 /hpf (0-5); WBC Urine 15-25 /hpf (0-5)
--- NOTE | 2022-04-10 08:37 | SUR.OPER ---
attempted to contact family with surgical update
--- NOTE | 2022-04-10 10:08 | SUR.OPER ---
family updated of surgical status.
--- NOTE | 2022-04-10 10:40 | XR_ITS ---
WS: [id number] Left ankle, C-arm fluoroscopy, 04/10/2022 Clinical Data: OR PICS Comparison: Left ankle, 04/06/2022. Findings: Dr. Browning performed an internal fixation of a comminuted distal left tibial fracture. There is a plat e and screws adjacent to the medial tibia. There is a plate and screws adjacent to the distal fibula with a long interosseous screw joining the medial and lateral plates. There are oblique screws and anterior posterior screws in the distal left tibia. XR/XR ankle LT 2V [id number] Impression: Internal fixation of comminuted distal left tibial fracture.
[2022-04-10] MEDS: fentaNYL 50 mcg/mL INJ 2mL IVP (11:20)
--- NOTE | 2022-04-10 11:50 | ANES.PROC ---
Anesthesia Procedures Procedure/Date: 04/10/22 Nerve Block ^: Nerve Block 1: Main Anesthesia: general anesthesia Time Out Performed: Yes Consent: requested by attending/covering physician, from patient, risks and benefits reviewed and patient agrees to proceed Nerve block location: popliteal (left) Anesthesia monitors applied: pulse oximetry, EKG, BP cuff and oxygen Nerve block position: semi sitting Anesthetic Used: ropivicaine 0.5% Amount of anesthesia used (mL): 30 Ultrasound used to: recognize landmarks Nerve Stimulator Used?: No Interscalene/Femoral BLK: 4 stimuplex 21 g needle used for position and inplane approach Injection: neg aspiration of heme Patient Tolerated Procedure: well Complications: none
--- NOTE | 2022-04-10 12:16 | P.OP_ITS ---
Operative Report Date of procedure: April 10, 2022 Pre-op diagnosis: Left trimalleolar ankle fracture dislocation with syndesmotic disruption Post-op diagnosis: Left trimalleolar ankle fracture dislocation with syndesmotic disruption Post-op findings: Large posterior malleolar fracture with significant osteopenia Procedure done: Open Reduction Internal Fixaiton Left Trimalleolar Ankle fracture with syndesmotic fixation Implants: The John ankle system with a small 50 mm hook plate medially per [facility] and a 2 hole one third tubular plate laterally. Specimens removed/disposition: None Pathology: none sent Surgeon: Daria Browning [employer] Lead: [facility] operating room technicians Anesthesia: General (Intubated, ASA 3) Estimated blood loss (mL): 45 Tourniquet time (min): 4 (At 250 mmHg) IV fluids (mL): 1,700 Urine output (mL): 0 (No Marinelli) Complications: None Findings: Significantly osteopenic bone with comminution of the medial malleolus. Large posterior malleolar fragment. Condition: stable Disposition: PACU (Then return to same-day surgery for discharge to home) Brief History: This 76-year-old woman presented to my office for evaluation of her left ankle and left knee injury. The patient is status post total knee arthroplasty. Her injury date was March 29, 2022. She was out of town and she slipped on a rock twisting her ankle. She also twisted her knee, but currently, she is having no significant knee symptoms. She was evaluated at [facility] in [facility]. She was placed in a splint there and remain nonweightbearing until she could be seen here. Procedure: Patient was seen in the preoperative holding area and left leg was marked. Patient was brought to the operating theater and placed on the operating room table. After undergoing adequate general anesthesia, the patient's left lower extremity was prepped and draped in usual fashion utilizing DuraPrep. The leg was draped free. Fluoroscopy was used throughout the surgical procedure. We did have a tourniquet high on the left lower extremity. This was elevated to 250 mmHg and total tourniquet time was 4 minutes. Tourniquet elevation followed exsanguination of the leg. After 4 minutes of tourniquet time, the patient's blood pressure increased, and a venous tourniquet was present. Therefore, it was released and we were able to proceed with the surgical intervention without tourniquet. A surgical pause was performed prior to elevation of the tourniquet. At the time of the surgical pause we identified the site and side of surgery as well as the patient's identity and availability of equipment. We also confirmed appropriate administration of IV antibiotics, Ancef 2 g. Following the above, an incision was made laterally so that we could manipulate the large posterior malleolar fracture with hopes of being able to reduce it. We were able to manipulate the fracture enough that it was able to be brought down to nearly anatomic at the joint line. This was accomplished through the lateral incision. CT scan showed that the only fibular fracture was proximal. This would imply that the syndesmosis was significantly damaged by this fractu re. Plans have been made for tight rope type fixation of the syndesmosis as well. An incision was made anteriorly taking care to avoid neurovascular structures. 2 headless screws were placed to hold the posterior malleolar fracture in near anatomic position. We then made a third incision centering over the patient's medial malleolar fracture. The incision was continued proximally distally along the malleolus to allow access to the malleolus. We knew this was quite comminuted from the CT scan. For this reason, the small hook plate was chosen to hopefully give best fixation. We were able to reduce the fracture nearly anatomically. The hook plate plate was attached by impacting the hooks and subsequently placing screws more proximally. We were able to manipulate the fracture with this plate as well. Due to the position of the fracture, and the significant osteopenia, I also placed 1 headed screw with a washer posterior to the hook plate to better hold the medial malleolar fracture reduced. Position of the hardware and the fracture was confirmed in AP and lateral planes. Attention was directed back to the lateral aspect of the ankle. A short 2 hole plate was used to place the tight rope device and have stability over the bone. 1 screw was placed in this plate to hold it in position as well. The tight rope device was placed and secondary to the large size of the posterior malleolar fracture and the patient's osteopenia, the locking device medially essentially pulled into the patient's tibia and into the fracture. Therefore, we retrieved the device and removed it. Attempt was then made to place the device in a different position, but with the screws anterior to posterior as well as the hook plate and screws involved with this, we were not able to pass the guidewire in any position that did not involve the posterior malleolar fracture. Because of this, we then elected to place a 3 cortex syndesmotic fixation utilizing a screw. This was placed through the distal screw hole of the small 2 hole plate. Once the above-noted fixation was in place and found to be appropriate with excellent reduction of the fracture, we irrigated the wound. We then closed the wound with 0 Vicryl in the fascial tissues medially only, 2-0 Monocryl in the subcutaneous tissues, and the skin was closed with skin johnathan. This was followed by Dermabond and Telfa. 4 x 4's were then placed followed by sterile soft roll and an Ruslan wrap. The patient was refitted in their cam walker boot, and she is advised to remain strictly nonweightbearing. The procedure was well tolerated without complication. Tourniquet time was 4 minutes at 250 mmHg. The patient will be discharged home to follow-up in my office as scheduled. Related Problem List Diagnoses (1) Fracture of lateral malleolus of left fibula at syndesmosis: (2) Other fracture of upper and lower end of left fibula, initial encounter for closed fracture: (3) Displaced trimalleolar fracture of left lower leg, initial encounter for closed fracture:
--- NOTE | 2022-04-10 13:12 | ANE.PACU2 ---
Inpatient post-anesthesia follow up: Airway intact: Yes Vital signs: Temperature 98 F Pulse Rate 73 Respiratory Rate 18 Blood Pressure 169/91 Pulse Oximetry 95 Oxygen Delivery Me thod Room Air Oxygen Flow Rate 3 Fraction of Inspir ed Oxygen Hydration adequate: Yes Nausea and vomiting: No Pain level: 3 Mental status: Baseline
== END 2022-04-10 13:20 | disposition home or self-care (01) ==
PROVIDERS: PCP Internal Medicine; Visit Provider Specialist
PROC: (CPT 27822; principal; 2022-04-10 07:00)
DX: S82.852A Displaced trimalleolar fracture of left lower leg, initial encounter for closed fracture (principal); X58.XXXA Exposure to other specified factors, initial encounter; G47.30 Sleep apnea, unspecified; I10 Essential (primary) hypertension; K21.9 Gastro-esophageal reflux disease without esophagitis; E11.9 Type 2 diabetes mellitus without complications; E66.01 Morbid (severe) obesity due to excess calories; Z68.33 Body mass index [BMI] 33.0-33.9, adult; Z79.84 Long term (current) use of oral hypoglycemic drugs; Z79.891 Long term (current) use of opiate analgesic; G47.33 Obstructive sleep apnea (adult) (pediatric); Z87.891 Personal history of nicotine dependence
CPT/HCPCS: 27822; 36416; 64450; 73600; 76000; 76942; 81001; 82962; C1713; J1100; J1170; J2250; J2405; J2704; J2710; J2795; J3010; J3490; J7030

== ENCOUNTER → 2022-04-15 11:13 | Outpatient (BNVA) | payer MEDICARE, SELFPAY | PROVIDERS: PCP Internal Medicine; Visit Provider Nurse Practitioner Family | DX: Z98.890 Other specified postprocedural states (principal) | CPT/HCPCS: 99024 ==

== ENCOUNTER → 2022-04-28 09:34 | Outpatient (BNVA) | payer MEDICARE, SELFPAY | PROVIDERS: PCP Internal Medicine; Visit Provider Nurse Practitioner Family | DX: S82.832A Other fracture of upper and lower end of left fibula, initial encounter for closed fracture (principal); X58.XXXA Exposure to other specified factors, initial encounter; Z98.890 Other specified postprocedural states | CPT/HCPCS: 73590; 73610; 99024 ==

== ENCOUNTER → 2022-06-01 09:35 | Outpatient (BNVA) | payer MEDICARE, SELFPAY | PROVIDERS: PCP Internal Medicine; Visit Provider Specialist | DX: S82.852A Displaced trimalleolar fracture of left lower leg, initial encounter for closed fracture (principal); S82.832A Other fracture of upper and lower end of left fibula, initial encounter for closed fracture; S82.62XA Displaced fracture of lateral malleolus of left fibula, initial encounter for closed fracture; Z96.7 Presence of other bone and tendon implants; X58.XXXA Exposure to other specified factors, initial encounter | CPT/HCPCS: 73590; 73610; 99214 ==

== ENCOUNTER 2022-06-09 08:42 | Day surgery (SDC) | payer MEDICARE, SELFPAY ==
[2022-06-09] VITALS (14 sets, daily range): BP systolic 157–180; BP diastolic 73–91; PULSE 56–77; RESP 10–18; TEMP 36.2–37; O2SAT 92–100
--- NOTE | 2022-06-09 | XR_ITS ---
WS: [id number] Exam: XR ankle LT 1V [id number] Date/Time of Exam: 06/09/2022 12:00 AM Reason For Exam: removal of hardware. Single AP intraoperative C-arm image of the left ankle is submitted for evaluation. Comparison made t o prior study 8822. Cortical plate and screws have been removed from the lower fibula. Hardware in the distal tibia is un changed in appearance. XR/XR ankle LT 1V [id number] IMPRESSION: 1. Successful hardware removal from the lower fibula.
--- NOTE | 2022-06-09 | SCC_ITS ---
Procedure done: Removal syndesmotic screw and lateral plate. 4.7 seconds of fluoroscopic guidance, for a cumulative dose of 0.20 mGy, was provided to Dr. Browning by the radiology department. C-arm images of the Left ankle were saved for the patient's permanent record. IKE
[2022-06-09] MEDS: acetaminophen 1,000 MG/100 ML PIGGYBACK 400 MG IV (09:32)
[2022-06-09] MEDS: sodium chloride 0.9% 1,000 ML 30 ML IV (09:34)
[2022-06-09] MEDS: CELEcoxib 200 mg Capsule 400 MG PO (09:35)
[2022-06-09 09:40] LABS: Glucose Point of Care 98 mg/dL (70-110)
--- NOTE | 2022-06-09 09:44 | ANES.PREANE2 ---
Pre-Anesthetic Assessment Height/Weight: Height 1.55 m Weight 81.647 kg Temp Pulse Resp BP Pulse Ox O2 Del Method 98.6 F 77 18 157/85 98 06/09/22 08:57 06/09/22 08:57 06/09/22 08:57 06/09/22 08:57 06/09/22 08:57 06/09/22 09:09 Preop Diagnosis: Retained syndesmotic hardware Operation Date: 06/09/22 07:10 Proposed Procedures p LEFT ANKLE HARDWARE REMOVAL 94168 ,T84.84XA(Left) - Daria Browning MD Familial anesthetic complications: None Was Beta Lorin taken within 24 hours: N/A Was Clonidine taken within 24 hours: N/A Last intake: Intake Last Liquid Date 06/08/22 Last Liquid Time 22:00 Last Solid Date 06/08/22 Last Solid Time 19:00 Social No alcohol and No tobacco Exam alert, oriented x 3, clear to auscultation bilaterally and regular rate & rhythm Airway Mallampati: Class II Dentition: partials Pulmonary Sleep Apnea CV/HEM Hypertension GI Gastroesophageal Reflux Disease Metabolic Diabetes Mellitus, Hyperlipidemia and Thyroid Disease Anesthetic Plan ASA status: 3 Anesthesia: General Risk of > 500 ml blood loss (7ml/kg in children): No Medications/Allergies Home Medications Medication Instructions Recorded Confirmed Last Taken Type glucosamine 500 1 cap PO BEDTIME 11/23/19 06/08/22 04/09/22 History de-xrzlrbmkk-pacripfg comp 400 mg-D3 667 unit-C-Mn cap magnesium oxide 500 mg tablet 500 mg PO QDAY 11/23/19 06/08/22 04/09/22 History cranberry concentrate-ascorbic 1 cap PO BEDTIME 11/24/19 06/08/22 04/09/22 History acid 4,200 mg-20 mg capsule multivitamin,ka-ekej-mwbfwhis 1 tab PO QDAY 11/24/19 06/08/22 04/09/22 History (Complete Multivitamin) CPAP #1 ea 03/25/21 04/28/22 Unknown Rx amlodipine 2.5 mg tablet 2.5 mg PO DAILY #90 tabs 11/26/21 06/08/22 04/09/22 Rx atorvastatin 40 mg tablet 40 mg PO DAILY #90 tabs 11/26/21 06/08/22 04/09/22 Rx celecoxib 200 mg capsule (Celebrex) 200 mg PO BID #180 caps 11/26/21 06/08/22 04/09/22 Rx lansoprazole 30 mg capsule,delayed 30 mg PO BID 90 days #180 caps 11/26/21 06/08/22 04/09/22 Rx release levothyroxine 50 mcg tablet 50 mcg PO QDAY #90 tabs 11/26/21 06/08/22 04/09/22 Rx losartan 100 mg tablet 100 mg PO DAILY #90 tabs 11/26/21 06/08/22 04/09/22 Rx metformin 500 mg 24 hr 2,000 mg PO .WITH LARGEST MEAL 11/26/21 06/08/22 04/09/22 Rx tablet,extended release #360 tabs CAM walker #1 ea 04/06/22 04/28/22 Unknown Rx wheel chair with elevated foot rest #1 ea 04/06/22 04/28/22 Unknown Rx oxycodone 5 mg tablet 5 mg PO Q4H PRN pain #30 tabs 04/10/22 06/08/22 Unknown Rx topiramate 50 mg tablet (Topamax) 50 mg PO BID 06/01/22 06/08/22 Unknown History vitamin B complex (B 1 tab PO DAILY 06/01/22 06/08/22 Unknown History Complex-Vitamin B12) pregabalin 50 mg capsule 50 mg PO TID #90 caps 06/02/22 06/08/22 Unknown Rx venlafaxine 75 mg capsule,extended 150 mg PO QAM 06/08/22 06/08/22 Unknown History release 24 hr (Effexor XR) Allergies Allergy/AdvReac Type Severity Reaction Status Date / Time tetracycline AdvReac Intermediate HEADACHE Verified 04/28/22 09:45 AND NAUSEA lidocaine AdvReac Mild LYUDMILA Verified 04/28/22 09:45 IN GENERAL PALPATATIONS Current Medications Generic Name Dose Route Start Last Admin Trade Name Freq PRN Reason Stop Dose Admin Sodium Chloride 1,000 mls @ 30 mls/hr 06/09/22 08:45 06/09/22 09:34 Sodium Chloride 0.9% IV 06/10/22 08:44 30 mls/hr .Q24H BARNEY Administration PFSH Anesthesia Medical History Back pain associated with peripheral numbness Chronic low back pain Dizziness Essential hypertension with goal blood pressure less than 130/80 Long-term current use of opiate analgesic Morbid obesity Pain management contract signed Primary osteoarthritis of right knee Sleep apnea, obstructive Type 2 diabetes mellitus Surgical History Hx of hysterectomy Hx of knee surgery (~03/03/16) TOTAL RIGHT KNEE REPLACEMENT 03/03/16- DR BROWNING ARTHROSCOPIC KNEE SURGERY RIGHT SIDE- 05/16/14 DR BLAND TKA LT KNEE 2006 DR ALISHA DOW- [place] Family History Family/Other Cancer AUNT - BREAST CANCER Father Cancer MELANOMA Hypertension CAD (coronary artery disease) Other Bipolar 1 disorder Denies family history of Anesthesia complication Bleeding disorder Social History Smoking and tobacco status: former smoker History of recent travel: No Data Anesthesia Cardiac Studies: Holter Monitor 04/19/20
--- NOTE | 2022-06-09 10:44 | W.PM.OPSUD ---
Surgery/Procedure H&P Update DATE OF PROCEDURE: June 09, 2022 DATE H&P PERFORMED: 06/01/22 H&P UPDATE INFORMATION: I have reviewed H&P completed within last 30 days, I have examined patient prior to procedure, No changes to prior documentation and H&P is in [facility] EMR on date indicated PREOP DIAGNOSIS: Retained syndesmotic hardware PLANNED PROCEDURE: Operation Date: 06/09/22 07:10 Proposed Procedures p LEFT ANKLE HARDWARE REMOVAL 36362 ,T84.84XA(Left) - Daria Browning MD Related Problem List Diagnoses (1) Fracture of lateral malleolus of left fibula at syndesmosis:
[2022-06-09] MEDS: ceFAZolin 2,000 MG in sodium chloride 0.9% (plus) 50 ML 100 MG IV (11:30)
[2022-06-09] MEDS: ceFAZolin 1,000 mg SDV 1000 MG IRRIGATION (11:45)
--- NOTE | 2022-06-09 12:21 | PM.OP ---
Operative Report Date of procedure: June 09, 2022 Pre-op diagnosis: Retained syndesmotic hardware Post-op diagnosis: Retained syndesmotic hardware Procedure done: Removal syndesmotic screw and lateral plate. Specimens removed/disposition: Hardware with patient Pathology: none sent Surgeon: Daria Browning Anesthesia: General (Per LMA, ASA 3) Estimated blood loss (mL): 10 IV fluids (mL): 500 Urine output (mL): 0 (No Marinelli) Complications: None Condition: stable Disposition: PACU (Then to same day surgery with discharge home) Brief History: Pratik is a 77 year old woman who initially presented with a trimalleolar fracture with syndesmotic disruption. She presents today for removal of syndesmosis screw to allow weight bearing. Risks and complications were discussed in detail with the patient. Consents were signed and questions were answered. Procedure: Patient was seen in the preoperative holding area and leg was marked. Patient was brought to the operating theater and placed on the operating room table. After undergoing adequate general anesthesia per LMA, ASA 3, the patient's left lower extremity was prepped and draped in usual fashion utilizing DuraPrep. The leg was draped free. Fluoroscopy was used throughout the surgical procedure. We did have a tourniquet high on the [] lower extremity, but it was not elevated. A surgical pause was performed. At the time of the surgical pause we identified the site and side of surgery as well as the patient's identity and availability of equipment. We also confirmed appropriate administration of IV antibiotics. Following surgical pause, the patient's previous incision over the lateral ankle was entered. The entire incision was not used as fluoroscopy was used to determine appropriate position for the incision. We were able to dissect down onto the lateral plate which was a 2 hole plate with 2 screws. These were removed uneventfully. They were sent to be washed and cleaned and to be sent with the patient. Following removal, the wound was copiously irrigated. Fluoroscopy was utilized to assure that the hardware completely removed with no breakage. Following the above, an incision was made centering over the patient's [] fracture. The incision was continued []. We were able to reduce the fracture anatomically. This was held with a clamp while we contoured a plate to appropriately fit the patient's []. [] plate was attached with standard technique. We used a combination of locking as well as one nonlocking screw and an anterior posterior lag screw prior to placement of the plate. Once the plate was appropriately attached, we irrigated the wound. We then closed the wound with 0 Vicryl in the fascial tissues, 2-0 Monocryl in the subcutaneous tissues, and the skin was closed with skin johnathan. Attention was then directed to closure. The subcutaneous tissues were closed with 3-0 Monocryl, and the skin was closed with a running 4-0 Monocryl. This was followed by Dermabond and Steri-Strips. Sterile dressing was then placed consisting of Steri-Strips over the Dermabond, OpSite, sterile soft roll, and an Ruslan wrap. Tourniquet was not elevated. The procedure was well tolerated without complication. The patient will be discharged home to follow-up in my office as scheduled. Related Problem List Diagnoses (1) Fracture of lateral malleolus of left fibula at syndesmosis: (2) Retained orthopedic hardware:
[2022-06-09] MEDS: fentaNYL 50 mcg/mL INJ 2mL IVP (12:30)
--- NOTE | 2022-06-09 13:20 | ANE.PACU2 ---
Inpatient post-anesthesia follow up: Airway intact: Yes Vital signs: Temperature 97.6 F Pulse Rate 59 Respiratory Rate 16 Blood Pressure 174/88 Pulse Oximetry 97 Oxygen Delivery Me thod Room Air Oxygen Flow Rate 10 Fraction of Inspir ed Oxygen Hydration adequate: Yes Nausea and vomiting: No Pain level: 2 Mental status: Baseline
[2022-06-09] MEDS: HYDROcodone-acetaminophen 5-325 mg Tablet 1 TAB PO (13:39)
== END 2022-06-09 13:55 | disposition home or self-care (01) ==
PROVIDERS: PCP Internal Medicine; Visit Provider Specialist
PROC: (CPT 27704; principal; 2022-06-09 07:00)
DX: T84.84XA Pain due to internal orthopedic prosthetic devices, implants and grafts, initial encounter (principal); G47.30 Sleep apnea, unspecified; I10 Essential (primary) hypertension; K21.9 Gastro-esophageal reflux disease without esophagitis; E11.9 Type 2 diabetes mellitus without complications; E78.5 Hyperlipidemia, unspecified; G47.33 Obstructive sleep apnea (adult) (pediatric); Z87.891 Personal history of nicotine dependence
CPT/HCPCS: 27704; 36416; 73600; 76000; 82962; J0690; J1100; J2405; J2704; J3010; J7030

== ENCOUNTER → 2022-06-23 10:47 | Outpatient (BNVA) | payer MEDICARE, SELFPAY | PROVIDERS: PCP Internal Medicine; Visit Provider Nurse Practitioner Family | DX: S82.62XD Displaced fracture of lateral malleolus of left fibula, subsequent encounter for closed fracture with routine healing (principal); X58.XXXD Exposure to other specified factors, subsequent encounter; Z96.7 Presence of other bone and tendon implants | CPT/HCPCS: 99024 ==

== ENCOUNTER 2022-07-08 14:00 | Outpatient (CLI) | payer MEDICARE, SELFPAY ==
--- NOTE | 2022-07-08 14:00 | XR_ITS ---
WS: [id number] DEXA (DUAL ENERGY X-RAY ABSORPTIOMETRY) Bone mineral density was performed using a [employer] machine. HISTORY: fracture COMPARISON: 07/13/2017 Lumbar spine BMD (L1-L4): 1.438 g/cm2 T score: 2.1 Z score: 3.2 Total hip BMD: Left: 0.960 g/cm2. T score: -0.4 Z score: 0.9 Right: 0.929 g/cm2. T score: -0.6 Z score: 0.6 10 year probability of a major osteoporotic fracture is 16.2%. Compared to the prior study from 07/13/2017. Lumbar spine bone mineral density has increased by 3.5%. Bilateral hips bone mineral density has decreased by 17.2%. XR/XR DEXA axial skeleton* 27567 IMPRESSION: NORMAL BONE MINERAL DENSITY based upon the WHO classification for females. Bone mineral density within the hips has significantly decreased since the prio r study. There has been a significant increase in bone mineral density within t he lumbar spine.
== END 2022-07-08 14:01 | disposition home or self-care (01) ==
LOC: RAD 14:01
PROVIDERS: PCP Internal Medicine; Visit Provider Internal Medicine
DX: S82.62XA Displaced fracture of lateral malleolus of left fibula, initial encounter for closed fracture (principal); X58.XXXA Exposure to other specified factors, initial encounter
CPT/HCPCS: 77080

== ENCOUNTER 2022-08-05 12:35 | Observation (INO) | payer MEDICARE, SELFPAY ==
[2022-07-30 10:21] VITALS: BMI 33.0
--- NOTE | 2022-07-30 15:39 | P.ANESASSM_ITS ---
Pre-Anesthetic Assessment Height/Weight: Height 1.55 m Weight 79.379 kg Preop Diagnosis: Retained syndesmotic hardware Operation Date: 08/05/22 07:00 Proposed Procedures p Spinal Fusion L4/5 09331/44193/99427/26698/M43.16(Not Applicable) - DO mati Bedolla Lumbar Spine Decompression(Not Applicable) - Faisal Bang DO Familial anesthetic complications: NONE Was Beta Lorin taken within 24 hours: N/A Was Clonidine taken within 24 hours: N/A Social No alcohol and No tobacco Exam alert, oriented x 3, clear to auscultation bilaterally and regular rate & rhythm Airway Submandibular: within normal limits Cervical ROM: within normal limits Mallampati: Class II Dentition: partials Pulmonary Sleep Apnea CV/HEM Hypertension GI Gastroesophageal Reflux Disease Metabolic Diabetes Mellitus, Hyperlipidemia and Thyroid Disease Musc/skel Lower Back Pain Anesthetic Plan ASA status: 3 Anesthesia: General Medications/Allergies Home Medications Medication Instructions Recorded Confirmed Last Taken Type glucosamine 500 1 cap PO BEDTIME 11/23/19 07/30/22 04/09/22 History du-wqdeemhug-rimxuusy comp 400 mg-D3 667 unit-C-Mn cap magnesium oxide 500 mg tablet 500 mg PO QDAY 11/23/19 07/30/22 04/09/22 History cranberry concentrate-ascorbic 1 cap PO BEDTIME 11/24/19 07/30/22 04/09/22 History acid 4,200 mg-20 mg capsule multivitamin,kb-kial-ixlsrpmw 1 tab PO QDAY 11/24/19 07/30/22 04/09/22 History (Complete Multivitamin tablet) CPAP #1 ea 03/25/21 06/23/22 Unknown Rx amlodipine 2.5 mg tablet 2.5 mg PO DAILY #90 tabs 11/26/21 07/30/22 04/09/22 Rx atorvastatin 40 mg tablet 40 mg PO DAILY #90 tabs 11/26/21 07/30/22 04/09/22 Rx celecoxib 200 mg capsule (Celebrex) 200 mg PO BID #180 caps 11/26/21 07/30/22 04/09/22 Rx lansoprazole 30 mg capsule,delayed 30 mg PO BID 90 days #180 caps 11/26/21 07/30/22 04/09/22 Rx release levothyroxine 50 mcg tablet 50 mcg PO QDAY #90 tabs 11/26/21 07/30/22 04/09/22 Rx metformin 500 mg 24 hr 2,000 mg PO .WITH LARGEST MEAL 11/26/21 07/30/22 04/09/22 Rx tablet,extended release #360 tabs CAM walker #1 ea 04/06/22 06/23/22 Unknown Rx wheel chair with elevated foot rest #1 ea 04/06/22 06/23/22 Unknown Rx oxycodone 5 mg tablet 5 mg PO Q4H PRN pain #30 tabs 04/10/22 07/30/22 Unknown Rx topiramate 50 mg tablet (Topamax) 50 mg PO BID 06/01/22 07/30/22 Unknown History vitamin B complex (B 1 tab PO DAILY 06/01/22 07/30/22 Unknown History Complex-Vitamin B12 tablet) pregabalin 50 mg capsule 50 mg PO TID #90 caps 06/02/22 07/30/22 Unknown Rx venlafaxine 75 mg capsule,extended 150 mg PO QAM 06/08/22 07/30/22 Unknown History release 24 hr (Effexor XR) losartan 100 2 tab PO DAILY 07/30/22 07/30/22 Unknown History mg-hydrochlorothiazide 25 mg tablet prochlorperazine maleate 10 mg 10 mg PO DAILY PRN Allergy Symptoms 07/30/22 07/30/22 Unknown History tablet Allergies Allergy/AdvReac Type Severity Reaction Status Date / Time tetracycline AdvReac Intermediate HEADACHE Verified 04/28/22 09:45 AND NAUSEA lidocaine AdvReac Mild LYUDMILA Verified 04/28/22 09:45 IN GENERAL PALPATATIONS [facility] Anesthesia Medical History Back pain associated with peripheral numbness Chronic low back pain Dizziness Essential hypertension with goal blood pressure less than 130/80 Long-term current use of opiate analgesic Morbid obesity Pain management contract signed Primary osteoarthritis of right knee Sleep apnea, obstructive Type 2 diabetes mellitus Surgical History Hx of hysterectomy Hx of knee surgery (~03/03/16) TOTAL RIGHT KNEE REPLACEMENT 03/03/16- DR BROWNING ARTHROSCOPIC KNEE SURGERY RIGHT SIDE- 05/16/14 DR BLAND TKA LT KNEE 2006 DR ALISHA DOW- [place] Family History Family/Other Cancer AUNT - BREAST CANCER Father Cancer MELANOMA Hypertension CAD (coronary artery disease) Other Bipolar 1 disorder Denies family history of Anesthesia complication Bleeding disorder Social History Smoking and tobacco status: former smoker History of recent travel: No Data Anesthesia Cardiac Studies: Holter Monitor 04/19/20
[2022-08-05] VITALS (41 sets, daily range): BP systolic 105–183; BP diastolic 63–93; PULSE 64–83; RESP 10–24; TEMP 36.4–37.4; O2SAT 86–100
--- NOTE | 2022-08-05 | SCC_ITS ---
Procedure done: 1. L4-5 posterolateral fusion 2. L4-5 instrumentation 3. L4/5 laminectomy with partial facetectomies 4. Bone marrow aspiration right iliac crest 5. use of computer navigation/ stereotactic for spine 6. use of allograft bone 7. use of autograft bone from same incision 1 second of fluoroscopic guidance, for a cumulative dose of 50.0 mGy, was provided to Dr. Bang by the radiology department. C-arm images of the lumbar spine were saved for the patient's permanent record. IKE
--- NOTE | 2022-08-05 | XR_ITS ---
WS: [id number] Lumbar spine, C-arm fluoroscopy, AP and lateral views, 08/05/2022 Clinical Data: Instrumented fusion L4-L5 Comparison: Lumbar spine, 01/08/2022 Findings: Dr. Bang placed bilateral pedicle screws with connecting rods at L4-L5. There is a L5 laminectomy. XR/XR lumbar spine 2-3V* [id number] Impression: Posterior lumbar fusion.
[2022-08-05 08:33] LABS: Glucose Point of Care 89 mg/dL (70-110)
--- NOTE | 2022-08-05 08:33 | ANES.PAUD2 ---
Pre-Anesthetic Update Pre-Anesthetic Assessment: Date of Surgery/Procedure: 08/05/22 Preop Diagnosis: Spondylolisthesis L4-5, lumbar radiculopathy Proposed Procedure: Operation Date: 08/05/22 09:20 Proposed Procedures p Spinal Fusion L4/5 48782/14642/88430/15302/M43.16(Not Applicable) - Faisalmarylou Bang, DO s Lumbar Spine Decompression(Not Applicable) - Faisal H Beti, DO Any changes to Pre-Anesthetic Assessment?: Yes Last Intake: Intake Last Liquid Date 08/04/22 Last Liquid Time 23:00 Last Solid Date 08/04/22 Last Solid Time 16:00 Vitals: Temperature 97.9 F 08/05/22 08:01 Temperature Source Temporal Artery S can 08/05/22 08:01 Pulse Rate 79 08/05/22 08:01 Respiratory Rate 18 08/05/22 08:01 Blood Pressure 161/76 08/05/22 08:01 Blood Pressure Maddie n 104 08/05/22 08:01 Pulse Oximetry 97 08/05/22 08:01 Oxygen Delivery Me thod 08/05/22 08:10 Exam: Pre-Anes Outpt Exam: alert, oriented x 3, clear to auscultation bilaterally and regular rate & rhythm Cardiac Studies: Holter Monitor 04/19/20
[2022-08-05] MEDS: sodium chloride 0.9% 1,000 ML 30 ML IV (08:35)
--- NOTE | 2022-08-05 09:50 | P.HP_ITS ---
Providers/Chief Complaint Primary Care Provider: Kendrick Villaseñor MD Chief Complaint: L4/5 FUSION WITH DECOMPRESSION 69134/[id number]/47873/6 History of Present Illness Pratik Portillo is a 77 year old female ower back pain. Patient states pain has been present for several years and is getting progressively worse.? Patient rates pain at 3/10 in clinic today but states when it flares up it can jump to a 9/10.? Patient states that pain in b ack does not stop her from daily activities but just makes them painful. Onset: chronic Duration: years Characteristics: dull, ache Severity: 3 Location: lower back Radiating symptoms: left leg Aggravating factors: unknown Alleviating factors: none Neuro deficits: left leg numbness, tingling, weakness Prior tx: Steriod injections 5 years ago with no relief, Physical therapy 3 years ago with no relief, Chiropracter. Goals: open Review of Systems Const: Denies: fever(s) or chills Eyes: Denies: change in vision ENMT: Denies: throat pain Card: Denies: chest pain or dyspnea on exertion Resp: Denies: dyspnea or productive cough GI: Denies: abdominal pain, nausea or vomiting : Denies: difficulty voiding Musc: Reports: joint pain, joint swelling and limited range of motion Skin/Breast: Denies: changes in skin color or dry skin Neuro: Denies: numbness in extremities or weakness in extremities Psych: Denies: anxiety Endo: Denies: cold intolerance or heat intolerance Darian/Lymph: Denies: easy bruising or easy bleeding Medications/Allergies Home Medications Medication Instructions Recorded Confirmed Last Taken Type glucosamine 500 1 cap PO BEDTIME 11/23/19 08/05/22 08/04/22 History co-ffvqvgtto-hhitpont comp 400 mg-D3 667 unit-C-Mn cap magnesium oxide 500 mg tablet 500 mg PO QDAY 11/23/19 08/05/22 08/04/22 History cranberry concentrate-ascorbic 1 cap PO BEDTIME 11/24/19 08/05/22 08/04/22 History acid 4,200 mg-20 mg capsule multivitamin,aq-fvlp-wbchykko 1 tab PO QDAY 11/24/19 08/05/22 08/04/22 History (Complete Multivitamin tablet) CPAP #1 ea 03/25/21 06/23/22 Unknown Rx amlodipine 2.5 mg tablet 2.5 mg PO DAILY #90 tabs 11/26/21 08/05/22 08/05/22 Rx atorvastatin 40 mg tablet 40 mg PO DAILY #90 tabs 11/26/21 08/05/22 08/04/22 Rx celecoxib 200 mg capsule (Celebrex) 200 mg PO BID #180 caps 11/26/21 08/05/22 08/04/22 Rx lansoprazole 30 mg capsule,delayed 30 mg PO BID 90 days #180 caps 11/26/21 08/05/22 08/04/22 Rx release levothyroxine 50 mcg tablet 50 mcg PO QDAY #90 tabs 11/26/21 08/05/22 08/04/22 Rx metformin 500 mg 24 hr 2,000 mg PO .WITH LARGEST MEAL 11/26/21 08/05/22 08/04/22 Rx tablet,extended release #360 tabs CAM walker #1 ea 04/06/22 06/23/22 Unknown Rx wheel chair with elevated foot rest #1 ea 04/06/22 06/23/22 Unknown Rx oxycodone 5 mg tablet 5 mg PO Q4H PRN pain #30 tabs 04/10/22 08/05/22 08/04/22 Rx topiramate 50 mg tablet (Topamax) 50 mg PO BID 06/01/22 08/05/22 08/04/22 History vitamin B complex (B 1 tab PO DAILY 06/01/22 08/05/22 08/04/22 History Complex-Vitamin B12 tablet) pregabalin 50 mg capsule 50 mg PO TID #90 caps 06/02/22 08/05/22 08/04/22 Rx venlafaxine 75 mg capsule,extended 150 mg PO QAM 06/08/22 08/05/22 08/04/22 History release 24 hr (Effexor XR) losartan 100 2 tab PO DAILY 07/30/22 08/05/22 08/04/22 History mg-hydrochlorothiazide 25 mg tablet prochlorperazine maleate 10 mg 10 mg PO DAILY PRN Allergy Symptoms 07/30/22 08/05/22 08/04/22 History tablet Allergies Allergy/AdvReac Type Severity Reaction Status Date / Time tetracycline AdvReac Intermediate HEADACHE Verified 04/28/22 09:45 AND NAUSEA lidocaine AdvReac Mild LYUDMILA Verified 04/28/22 09:45 IN GENERAL PALPATATIONS PFSH Acute PFSH: Medical History Back pain associated with peripheral numbness Chronic low back pain Dizziness Essential hypertension with goal blood pressure less than 130/80 Long-term current use of opiate analgesic Morbid obesity Pain management contract signed Primary osteoarthritis of right knee Sleep apnea, obstructive Type 2 diabetes mellitus Surgical History Hx of hysterectomy Hx of knee surgery (~03/03/16) TOTAL RIGHT KNEE REPLACEMENT 03/03/16- DR BROWNING ARTHROSCOPIC KNEE SURGERY RIGHT SIDE- 05/16/14 DR BLAND TKA LT KNEE 2006 DR ALISHA DOW- [place] Family History Family/Other Cancer AUNT - BREAST CANCER Father Cancer MELANOMA Hypertension CAD (coronary artery disease) Other Bipolar 1 disorder Denies family history of Anesthesia complication Bleeding disorder Social History Smoking and tobacco status: former smoker History of recent travel: No Vitals/I&O/Wt Last Vital Signs Temp 97.9 F 08/05/22 08:01 Pulse 79 08/05/22 08:01 Resp 18 08/05/22 08:01 BP 161/76 08/05/22 08:01 Pulse Ox 97 08/05/22 08:01 O2 Del Method 08/05/22 08:10 Physical Exam Narrative: GENERAL: Patient in no acute distress. CARDIAC: Regular rate and rhythm. CHEST: Normal inspiratory effort, normal respiratory rate. ABDOMEN: Soft and nontender. SKIN: Clear, warm and intact. NEURO?PSYCH: The patient is alert and oriented to person, place and time. Sensorv /SILT Motor StrengthShoulder abduction C5 5/5Wrist extension C6 5/5Elbow extension C7 5/5Hand Heavy Media Operator C8 5/5Finger abduction T15/5 Radial/ Ulnar/ Median n intact LowerSensory (SILT)Motor StrengthHin flexion L2/3Ant/inner thigh 5/5Hip adduction L2/3 5/5Knee extension L4 Lat thigh, 5/5Toe dorsiflexion L5 5/5Ankle dorsiflexion L5/ H43Ylijbtl flexion S1 5/5 DTRBleeps 2+Triceps 2+Brachioradialis 2+Patellar 2+Achilles 2+ MUSCULOSKELETAL: [] UPPEREXTREMITIES: The patient had full active ROM in fingers, wrist, elbow, and shoulder. The patient demonstrated ability to fully flex/extend/abduct/adduct fingers, make ok sign, cross 2nd/3rd digits, extend 1st digit fully.. Radial pulse 2+, CR<2 seconds. LOWER EXTREMITIES: Pt has full, active ROM of toes, ankle, knee, and hip. Dorsalis pedis/posterior tibialis pulses 2+, CR<2 seconds. SPINE: Skin warm, dry, intact. A&P Assessment and plan (1) Lumbar stenosis with neurogenic claudication: L4/5 fusion decompresion Attestations Medical Necessity Statement*: failed conservative treatment Coding Level of Care Code Acute Manager [facility] Fwd Diagnoses Lumbar stenosis with neurogenic claudication M48.062
[2022-08-05] MEDS: ceFAZolin 2,000 MG in sodium chloride 0.9% (plus) 50 ML 100 MG IV ×2 (10:14→17:21)
[2022-08-05] MEDS: heparin, porcine 1,000 unit/mL INJ 10 mL 10000 UNIT XX (11:00)
[2022-08-05] MEDS: vancomycin 1,000 MG SDV 1000 MG XX (11:01)
[2022-08-05] MEDS: fentaNYL 50 mcg/mL INJ 2mL IVP ×2 (12:28→12:56)
[2022-08-05] MEDS: ondansetron 2 mg/ML SDV 2 mL 4 MG IVP (12:34)
--- NOTE | 2022-08-05 13:00 | P.OP_ITS ---
Operative Report Date of procedure: August 05, 2022 Pre-op diagnosis: Preop Diagnosis Spondylolisthesis L4-5, lumbar radiculopathy Post-op diagnosis: same Procedure done: 1. L4-5 posterolateral fusion 2. L4-5 instrumentation 3. L4/5 laminectomy with partial facetectomies 4. Bone marrow aspiration right iliac crest 5. use of computer navigation/ stereotactic for spine 6. use of allograft bone 7. use of autograft bone from same incision Surgeon: Faisal Bang Clock And Watch Hands Dipper: Amol Louis Estimated blood loss (mL): 50 Procedure: 1. L4-5 posterolateral fusion 2. L4-5 instrumentation 3. L4/5 laminectomy with partial facetectomies 4. Bone marrow aspiration right iliac crest 5. use of computer navigation/ stereotactic for spine 6. use of allograft bone 7. use of autograft bone from same incision Patient is brought to the OR suite after undergoing anesthesia was placed in the prone position all areas impingement were well-padded. Patient was then prepped and draped normal sterile fashion. Skin incision is made over the L4-5 level. The thoracolumbar fascia was identified. This was then split using the Bovie. Subperiosteal dissection was made over the L4 and L5 spinous process the L3-4 facet joint was identified and kept intact. The dissection was made out to the transverse process of L4 bilaterally. As well as subperiosteal dissection out to the L5 transverse process bilaterally. Next attention was brought to obtaining the bone marrow aspirate. The GPMESS cell system was used. The awl was inserted bone marrow was aspirated then the awl was inserted deeper and in 1 mm increments of bone marrow aspirate was taken with 20 cc of bone marrow aspirate taken out from the right iliac crest. Next attention was brought to attaching the fiducial for the computer navigation . 2 pins were placed in the right iliac crest. These 2 pins were later removed. The fiducial was attached. The C-arm was brought in and the information was taken from the C-arm and placed into the computer and later used for placement of the pedicle screws using computer navigation. Next the screws were placed. This was done by using the computer navigated gearshift. The pedicles were identified using the gearshift. The gearshift was inserted screw measurements were taken the pedicle feeler was then used to palpate the superior inferior medial and lateral vaughan of the pedicle. Then the screws were placed under computer navigation. These were all 40 mm screws from [place]. Was brought to performing the laminectomy. This was done by using high-speed bur Kerrison rongeurs the L4 lamina was taken down. Was brought to taking down the medial aspect of the facets. This was done using high-speed bur Kerrison rongeur as well. The ligamentum flavum was then taken down from L4-L5. The L4 nerves were traced out the L4-5 foramen bilaterally. Steele to be adequately decompressed the L5 nerves were traced around the L5 pedicles bilaterally these were also felt to be adequately decompressed. The rods were then attached from L4-L5 bilaterally. Torqued into position. Wound was then irrigated. The transverse processes were decorticated and the autograft from the lamina and the allograft which was ostial cell bone graft from [employer] was packed in the lateral gutters bilaterally. AP lateral fluoroscopy ensured the hardware is in proper position. Vancomycin powder was placed a Hemovac drain was placed and wound was closed in layered fashion using 0 Vicryl 2-0 Vicryl and Monocryl suture. Sterile dressings were applied and patient was transferred to the PACU in stable condition.
[2022-08-05 13:18] LABS: Glucose Point of Care 126 mg/dL (70-110)
[2022-08-05] MEDS: HYDROmorphone 1 mg/mL INJ 1 mL 0.5 MG IVP ×2 (13:18→14:40)
--- NOTE | 2022-08-05 13:48 | ANE.PACU2 ---
Inpatient post-anesthesia follow up: Airway intact: Yes Vital signs: Temperature 97.6 F Pulse Rate 72 Respiratory Rate 18 Blood Pressure 178/74 Pulse Oximetry 98 Oxygen Delivery Me thod Room Air Oxygen Flow Rate 8 Fraction of Inspir ed Oxygen Hydration adequate: Yes Nausea and vomiting: No Pain level: 1 Mental status: Baseline
[2022-08-05] MEDS: lactated ringers 1,000 ML 90 ML IV (17:19)
[2022-08-05] MEDS: pantoprazole DR 40 mg Tablet PO (17:22)
[2022-08-05] MEDS: topiramate 25 mg Tablet 50 MG PO (17:22)
[2022-08-05] MEDS: docusate sodium 100 mg Capsule PO (17:22)
[2022-08-05] MEDS: morphine 4 mg/mL SDV 1 mL IVP (17:31)
[2022-08-05] MEDS: pregabalin 50 mg Capsule PO (20:02)
[2022-08-05] MEDS: oxyCODONE-APAP 10-325 mg Tablet 1 TAB PO ×2 (20:02→23:43)
[2022-08-05] MEDS: ketorolac 30 mg/mL INJ IVP (23:02)
[2022-08-05 23:19] LABS: Glucose Point of Care 113 mg/dL (70-110)
[2022-08-06] MEDS: ceFAZolin 2,000 MG in sodium chloride 0.9% (plus) 50 ML 100 MG IV ×2 (01:49→09:54)
[2022-08-06 04:49] VITALS: BP 108/61; PULSE 70; RESP 16; TEMP 37.1; O2SAT 94
[2022-08-06] MEDS: venlafaxine ER (24HR) 75 mg Capsule 150 MG PO (05:47)
[2022-08-06] MEDS: lactated ringers 1,000 ML 90 ML IV (05:47)
[2022-08-06 05:48] VITALS: RESP 16; O2SAT 94
[2022-08-06] MEDS: oxyCODONE-APAP 10-325 mg Tablet 1 TAB PO ×3 (05:48→14:41)
[2022-08-06 06:35] LABS: Glucose Point of Care 99 mg/dL (70-110)
[2022-08-06 07:14] VITALS: BP 102/59; PULSE 66; RESP 18; TEMP 36.8; O2SAT 95
--- NOTE | 2022-08-06 07:46 | PM.PN ---
Subjective Subjective: POD 1 Patient resting comfortably. States she has back pain denies any shortness of breath, chest pain, headaches. Vitals/I&O/Wt Last Vital Signs Temp 98.2 F 08/06/22 07:14 Pulse 66 08/06/22 07:14 Resp 18 08/06/22 07:14 BP 102/59 08/06/22 07:14 Pulse Ox 95 08/06/22 07:14 O2 Del Method 08/06/22 07:14 O2 Flow Rate 1 08/06/22 07:14 08/05/22 08/06/22 08/06/22 22:59 06:59 14:59 Intake Total 1190 / 3040 1350 / 4390 Output Total 945 / 1245 Balance 1190 / 2740 405 / 3145 Physical Exam Narrative: Patient presents alert and oriented x3 with a good general appearance normal mood and affect. Normal coordination normal stability. Mild tenderness around the incisional site with the incision appear to be clean and dry with Hemovac intact. No signs of erythema or drainage. No signs of infection. Patient denies any fevers or chills. 4/5 motor strength both lower extremities with negative straight leg raise bilaterally. Calves are supple no medial thigh tenderness. Pulses are 2+ at the dorsalis pedis and posterior tibial region. Good capillary refill throughout normal sensation light touch both lower extremities. Urinary Catheter Management: Marinelli Latex: Cath Placed During This Visit: yes Reason for Continuing Indwelling Catheter: Other Urinary Catheter Date of Insertion: 08/05/22 Urinary Catheter Time of Insertion: 10:30 A&P Assessment and plan (1) Status post lumbar spinal fusion: Have physical therapy work on mobilization. Continues incentive spirometry for pulmonary toilet. We will discontinue Hemovac drain. As long as her pain is controlled and remained stable we will work for discharge home today or tomorrow. 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
[2022-08-06] MEDS: topiramate 25 mg Tablet 50 MG PO (08:49)
[2022-08-06] MEDS: levothyroxine 50 mcg Tablet PO (08:49)
[2022-08-06] MEDS: docusate sodium 100 mg Capsule PO (08:50)
[2022-08-06] MEDS: pregabalin 50 mg Capsule PO ×2 (08:50→14:41)
[2022-08-06] MEDS: atorvastatin 40 mg Tablet PO (08:50)
[2022-08-06] MEDS: pantoprazole DR 40 mg Tablet PO (08:50)
[2022-08-06 09:55] VITALS: RESP 18
[2022-08-06 11:44] VITALS: BP 110/63; PULSE 74; RESP 16; O2SAT 95
[2022-08-06 14:41] VITALS: RESP 18
--- NOTE | 2022-08-06 14:54 | PC.NURSE ---
Hemovac discontinued per orders.
--- NOTE | 2022-08-07 13:04 | P.DS_ITS ---
Discharge Providers Date of Admission: 08/05/22 12:35 Date of Discharge: August 06, 2022 Attending Provider at Admission: Faisal Bang DO Attending Provider at Discharge: Faisal Bang DO Primary Care Provider: Kendrick Villaseñor MD Diagnoses at Discharge Discharge Diagnosis (1) Status post lumbar spinal fusion: Status: Acute Reason for Visit Reason for Visit: L4/5 FUSION WITH DECOMPRESSION 25641/[id number]/[id number]/6 Hospital Course Hospital Course uneventful Physical Exam Urinary Catheter Management: Marinelli Latex: Cath Placed During This Visit: yes, but has since been removed by the nurse Reason for Continuing Indwelling Catheter: Decision to DC Catheter Urinary Catheter Date of Insertion: 08/05/22 Urinary Catheter Time of Insertion: 10:30 Date Urinary Catheter Removed: 08/06/22 Time Urinary Catheter Discontinued: 10:13 Discharge Data Studies Completed and Pending Completed Studies During Hospitalization Category Date Time Status XR lumbar spine 2-3V* [id number] Routine Exams 08/05/22 Completed Radiology Impressions Lumbar Spine X-Ray 08/05/22 00:00 Impression: Posterior lumbar fusion. Laboratory Results POC Glucose 99 mg/dL (70-110) 08/06/22 06:22 Vitals Last Vital Signs Temp 98.2 F 08/06/22 07:14 Pulse 74 08/06/22 11:44 Resp 18 08/06/22 14:41 BP 110/63 08/06/22 11:44 Pulse Ox 95 08/06/22 11:44 O2 Del Method 08/06/22 11:44 O2 Flow Rate 1 08/06/22 07:14 Discharge Plan Discharge Patient Disposition: Home Condition: Stable Prescriptions: New oxycodone 10 mg tablet 5 mg PO Q4H PRN (Reason: pain) 7 Days Qty: 40 0RF Continued oaxa-hilsvc-jriaoede-D3-C-Mn 500-400-667 mg-mg-unit capsule 1 cap PO QPM amlodipine 2.5 mg tablet 2.5 mg PO DAILY Qty: 90 3RF lansoprazole 30 mg capsule,delayed release(DR/EC) 30 mg PO BID 90 Days Qty: 180 3RF cranberry conc-ascorbic acid 4,200-20 mg capsule 1 cap PO QAM (DME) CAM walker See Rx Instructions .Route .MEDSUPPLY Qty: 1 0RF Rx Instructions: As directed (DME) wheel chair with elevated foot rest See Rx Instructions .Route .MEDSUPPLY Qty: 1 0RF Rx Instructions: As directed vitamin B complex [B Complex-Vitamin B12] Tablet 1 tab PO QAM topiramate [Topamax] 50 mg tablet 50 mg PO QPM (DME) CPAP See Rx Instructions .Route .MEDSUPPLY Qty: 1 0RF Rx Instructions: CPAP TITRATION 9-13CM IF WATER WITH HEATED HUMIDITY prochlorperazine maleate 10 mg Tablet 10 mg PO TID PRN (Reason: Headache) atorvastatin 40 mg tablet 40 mg PO BEDTIME venlafaxine 75 mg capsule,extended release 24hr 150 mg PO QAM biotin 800 mcg Tablet 800 mcg PO DAILY Vitamin B-12 1,000 mcg Tablet 1,000 mcg PO QAM acetaminophen 500 mg Tablet 2,000 mg PO Q6H PRN (Reason: Pain) levothyroxine 50 mcg tablet 50 mcg PO QAM losartan 100 mg tablet 100 mg PO QAM metformin 500 mg tablet extended release 24 hr 2,000 mg PO .WITH LARGEST MEAL MDD 4 tabs pregabalin 50 mg capsule See Rx Instructions .ROUTE .COMPLEX Rx Instructions: 50mg po qam and 100mg po qpm mxbkrwfv-nao-LH-lycopen-lutein 500-300-250 mcg Tablet 1 tab PO QAM magnesium oxide 400 mg magnesium Tablet 400 mg PO QPM Held celecoxib [Celebrex] 200 mg capsule 200 mg PO BID Qty: 180 3RF Hold Instructions: Resume on 08/20/22. Discharge Orders: Discharge Order (Routine); Ordered 08/06/22 Ordered By: Amol Louis Referrals: Faisal Bang DO [Physician] - 08/13/22 9:15 am Discharge Diet: Advance as tolerated Discharge Activity: Limit activity as instructed Patient Instructions: Oxycodone/Acetaminophen (By mouth) (Percocet, Roxicet), Lumbar Spinal Fusion (DC), Opioid Safety Activity Restrictions/Additional Instructions: Thank you for choosing [facility] for your care! The following is a list of instructions, from your provider, to follow upon your discharge to ensure you have the optimal recovery from your recent injury or surgery. Follow-up care is a pichardo part of your treatment and safety. Be sure to make and go to all appointments and call your doctor if you are having problems. If you do not already have a follow-up appointment made, call Dr. Bang's] office in the next 1-3 days to make follow up appointment for 1 weeks at [phone]. It is also a good idea to know your test results and keep a list of the medicines you take. Medications will be prescribed for you at your provider's discretion. These medications are to be used as instructed; if they are taken more often that prescribed they will not be refilled early and in most cases will not be refilled at all. > When a refill is needed, you should contact katherin cross 2-3 business days before your prescription runs out. Medications will NOT be refilled by regional sales executive providers after hours! > Many pain medications contain Tylenol (Acetaminophen). Do not consume more than 4,000 mg of Tylenol per day in total with any combination of medications. > Pain medications can cause constipation. Please use an over the counter stool softener as directed, while taking pain medications. Consult your local pharmacist with questions or recommendations on stool softeners. If constipation persists, contact our office or your primary care provider. > While under our care, you are not to receive pain medications or other controlled substances from any other provider unless our office is notified and approves. Any attempts to do so will result in refusal to prescribe any further pain medications and possible dismissal from our practice. ? Walking is essential for the healing process after surgery. We would like you to slowly advance your walking. This should be done on relatively flat clear ground (inside or out) or can be done on a treadmill. Remember this goal does not have to happen all at once, slowly increase your distance and duration. This can be broken into more more than one walk per day as tolerated. Patients who walk as directed after surgery rarely require Physical Therapy. In the unlikely event this issue arises your provider will direct hospital staff to make the appropriate arrangements. ? No lifting over 5 pounds {a gallon of milk) or bending/twisting until further notice. Each of these activities places an unnecessary amount of stress onto the body and can impede the delicate healing process. > Instead of bending at the waist, keep your back straight and bend at the knees. > Instead of twisting your torso, keep your back straight and turn your entire body with your feet. ? You may sleep in any position which makes you comfortable. Many patients find comfort sleeping in a reclining chair. It is not abnormal to have difficulty sleeping for the first several weeks following your surgery. We recommend trying Benadry! or Tylenol PM as directed to help with your sleeping difficulties. Both medications are over the counter and available without prescription. ? NO SMOKING!!! Smoking dramatically increases the probability of developing postoperative wound infections. ? Common complaints after lumbar and/or thoracic spine surgery include, but are not limited to: numbness and/or tingling in the legs, pain around the incision and surrounding tissues, muscle spasms, or stiffness of the middle to low back. Contact our office if these symptoms persist or if an acute change occurs. ? No driving for the first 3-5days, and not while taking narcotics until seen at your follow-up appointment and cleared. There are no restrictions for riding on short trips, however if you take a longer trip, arrangements should be made to make regular stops to get out of the vehicle and stretch . ? Swelling is an unfortunate event that will take place with any surgery and is the primary source of your postoperative discomfort. While walking and regular approved activities helps control inflammation, there are additional steps you can take to minimize swelling. > Place ice over the surgical site and surrounding tissue for twenty minutes, followed by applying a low/medium heat (heating pad) for an additional twenty minutes every 1-2 hours as needed for painrelief. > You may use of over the counter anti-inflammatory medications (Ibuprofen, Motrin, Aleve, Advil, etc) as directed on the package label. These types of medicines will significantly reduce the amount of discomfort you experience after surgery from swelling. It should be noted that if you have and allergy to any of these medications, or a history of ulcers or kidney disease you should consult you primary care provider prior to starting these medications. Discharge Attestations Time Spent in Discharge Care*: less than 30 min Quality Metrics Clinical Quality Measures [ No reported AMI, CVA or VTE this stay] Coding Level of Care Code Acute [facility] note Diagnoses Status post lumbar spinal fusion Z98.1
== END 2022-08-06 14:55 | disposition home or self-care (01) ==
LOC: MEDSURG 08-06 00:58
PROVIDERS: Admitting Provider Orthopaedic Surgery; PCP Internal Medicine; Visit Provider Orthopaedic Surgery
PROC: (CPT 20930; principal; 2022-08-05 09:20)
PROC: (CPT 63005; 2022-08-05 09:20)
DX: M48.062 Spinal stenosis, lumbar region with neurogenic claudication (principal); I10 Essential (primary) hypertension; Z79.891 Long term (current) use of opiate analgesic; G89.29 Other chronic pain; E66.01 Morbid (severe) obesity due to excess calories; Z68.33 Body mass index [BMI] 33.0-33.9, adult; G47.30 Sleep apnea, unspecified; E11.9 Type 2 diabetes mellitus without complications; Z79.84 Long term (current) use of oral hypoglycemic drugs; Z87.891 Personal history of nicotine dependence; E78.5 Hyperlipidemia, unspecified
CPT/HCPCS: 20930; 20936; 20939; 22612; 22840; 61783; 63047; 36416; 51702; 72100; 76000; 82962; 97116; 97161; 97165; 97530; A9281; C1713; G0378; J1170; J1644; J1885; J2270; J2370; J2405; J2704; J2710; J3010; J3370; J3490; J7030

== ENCOUNTER → 2022-08-13 09:14 | Outpatient (BNVA) | payer MEDICARE, SELFPAY | PROVIDERS: PCP Internal Medicine; Visit Provider Physician Assistant | DX: Z47.89 Encounter for other orthopedic aftercare (principal); Z98.1 Arthrodesis status | CPT/HCPCS: 99024 ==

== ENCOUNTER → 2022-08-20 11:03 | Outpatient (BNVA) | payer MEDICARE, SELFPAY | PROVIDERS: PCP Internal Medicine; Visit Provider Physician Assistant | DX: Z98.1 Arthrodesis status (principal) | CPT/HCPCS: 72100; 99024 ==

== ENCOUNTER → 2022-08-29 12:15 | Outpatient (BNVA) | payer MEDICARE, SELFPAY | PROVIDERS: PCP Internal Medicine; Visit Provider Nurse Practitioner Family | DX: R30.0 Dysuria (principal); N39.0 Urinary tract infection, site not specified | CPT/HCPCS: 81000 ==

== ENCOUNTER → 2022-09-29 10:36 | Outpatient (BNVA) | payer MEDICARE, SELFPAY | PROVIDERS: PCP Internal Medicine; Visit Provider Physician Assistant | DX: Z47.89 Encounter for other orthopedic aftercare (principal); Z98.1 Arthrodesis status; Z96.9 Presence of functional implant, unspecified | CPT/HCPCS: 72100; 99024 ==

== ENCOUNTER → 2022-10-08 10:14 | Outpatient (BNVA) | payer MEDICARE, SELFPAY | PROVIDERS: PCP Internal Medicine; Visit Provider Nurse Practitioner Family | DX: Z98.890 Other specified postprocedural states (principal); S82.855D Nondisplaced trimalleolar fracture of left lower leg, subsequent encounter for closed fracture with routine healing; X58.XXXD Exposure to other specified factors, subsequent encounter | CPT/HCPCS: 73610; 99213 ==

== ENCOUNTER 2022-10-08 11:36 | Outpatient (CLI) | payer MEDICARE, SELFPAY | END 2022-10-08 11:37 | disposition home or self-care (01) | LOC: SPT 11:37 | PROVIDERS: PCP Internal Medicine; Visit Provider Nurse Practitioner Family | DX: Z47.89 Encounter for other orthopedic aftercare (principal) | CPT/HCPCS: 97760; L1902 ==

== ENCOUNTER 2022-10-09 13:01 | Outpatient (RCR) | payer MEDICARE, SELFPAY | END 2022-10-24 23:59 | disposition home or self-care (01) | LOC: SPT 13:01 | PROVIDERS: PCP Internal Medicine; Visit Provider Physician Assistant | DX: Z47.89 Encounter for other orthopedic aftercare (principal) | CPT/HCPCS: 97110; 97161 ==

== ENCOUNTER → 2022-10-13 09:24 | Outpatient (BNVA) | payer MEDICARE, SELFPAY | PROVIDERS: PCP Internal Medicine; Visit Provider Physician Assistant | DX: M47.812 Spondylosis without myelopathy or radiculopathy, cervical region (principal); R20.0 Anesthesia of skin; R20.2 Paresthesia of skin; M79.601 Pain in right arm; M79.602 Pain in left arm | CPT/HCPCS: 72050; 99214 ==

== ENCOUNTER 2022-10-14 06:00 | Outpatient (RCR) | payer MEDICARE, SELFPAY | END 2022-10-24 23:59 | disposition home or self-care (01) | LOC: SPT 06:00 | PROVIDERS: PCP Internal Medicine; Visit Provider Nurse Practitioner Family | DX: S82.852D Displaced trimalleolar fracture of left lower leg, subsequent encounter for closed fracture with routine healing (principal); Z47.89 Encounter for other orthopedic aftercare; M25.572 Pain in left ankle and joints of left foot; X58.XXXD Exposure to other specified factors, subsequent encounter | CPT/HCPCS: 97110; 97161 ==

== ENCOUNTER 2022-10-25 06:00 | Outpatient (RCR) | payer MEDICARE, SELFPAY | END 2022-11-24 23:59 | disposition home or self-care (01) | LOC: SPT 06:00 | PROVIDERS: PCP Internal Medicine; Visit Provider Physician Assistant | DX: Z98.1 Arthrodesis status (principal) | CPT/HCPCS: 97110 ==

== ENCOUNTER 2022-10-25 06:00 | Outpatient (RCR) | payer MEDICARE, SELFPAY | END 2022-11-09 23:59 | disposition home or self-care (01) | LOC: SPT 06:00 | PROVIDERS: PCP Internal Medicine; Visit Provider Nurse Practitioner Family | DX: S82.852D Displaced trimalleolar fracture of left lower leg, subsequent encounter for closed fracture with routine healing (principal); Z47.89 Encounter for other orthopedic aftercare; M25.572 Pain in left ankle and joints of left foot; X58.XXXD Exposure to other specified factors, subsequent encounter | CPT/HCPCS: 97110 ==

== ENCOUNTER → 2022-11-23 09:27 | Outpatient (BNVA) | payer MEDICARE, SELFPAY | PROVIDERS: PCP Internal Medicine; Referring Provider Physician Assistant; Visit Provider Specialist | DX: R20.0 Anesthesia of skin (principal) | CPT/HCPCS: 95910; 95912 ==

== ENCOUNTER 2022-11-25 06:00 | Outpatient (RCR) | payer MEDICARE, SELFPAY | END 2022-12-22 23:59 | disposition home or self-care (01) | LOC: SPT 06:00 | PROVIDERS: PCP Internal Medicine; Visit Provider Physician Assistant | DX: Z98.1 Arthrodesis status (principal) | CPT/HCPCS: 97110; 99213 ==

== ENCOUNTER → 2022-11-25 13:53 | Outpatient (BNVA) | payer MEDICARE, SELFPAY | PROVIDERS: PCP Internal Medicine; Visit Provider Specialist | DX: S82.62XG Displaced fracture of lateral malleolus of left fibula, subsequent encounter for closed fracture with delayed healing (principal); S82.852A Displaced trimalleolar fracture of left lower leg, initial encounter for closed fracture; Y99.9 Unspecified external cause status | CPT/HCPCS: 73610 ==

== ENCOUNTER 2022-12-10 07:19 | Outpatient (CLI) | payer MEDICARE, SELFPAY ==
--- NOTE | 2022-12-10 07:15 | MR_ITS ---
WS: [id number] MRI CERVICAL SPINE NONCONTRAST TECHNIQUE: Sagittal T1, T2 and STIR imaging. Axial T2, gradient, and fiesta imaging. CLINICAL INFORMATION: PAIN COMPARISON: None. FINDINGS: Straightening of the normal cervical lordosis. Mild spondylitic changes. Slight anterolisthesis C3 on C4. Mild disc bulging worse at C4-C5 C5-C6 and C6-C7. Slight contact of the cervical cord at C5-C6. Cord signal is normal. C2-C3: Moderate LEFT facet arthropathy. Mild LEFT foraminal narrowing. Spinal canal and RIGHT foramen are patent. C3-C4: Slight anterolisthesis. Mild facet arthropathy. Spinal canal and foramen are patent. C4-C5: Mild disc osteophyte complex endplate ridging. Mild facet arthropathy. Spinal canal and forame n are patent. C5-C6: Disc osteophyte complex with a RIGHT pericentral protrusion. Slight indentation on the ventral cervical cord. Mild central canal stenosis. Mild bilateral foraminal narrowing. C6-C7: Disc osteophyte complex with endplate ridging. Mild bilateral foraminal narrowing. Spinal clemencia l is patent. C7-T1: Normal. Visualized brain stem structures: Normal. Prevertebral soft tissues: Normal. A few small protrusions in the upper thoracic spine worse at T3-T4. MR/MR cervical spin wo con* [id number] IMPRESSION: 1. Straightening of the normal cervical lordosis. Slight anterolisthesis C3 on C4 with moderate spondylitic changes. 2. Mild central canal stenosis C5-C6 with RIGHT pericentral disc osteophyte pr otrusion and slight indentation RIGHT ventral cervical cord. 3. Mild bony foraminal narrowing LEFT C2-C3, bilateral C5-C6, and bilateral C6 -C7.
== END 2022-12-10 07:20 | disposition home or self-care (01) ==
LOC: RAD 07:20
PROVIDERS: PCP Internal Medicine; Visit Provider Physician Assistant
DX: R20.0 Anesthesia of skin (principal); R20.2 Paresthesia of skin; M48.02 Spinal stenosis, cervical region; M25.78 Osteophyte, vertebrae
CPT/HCPCS: 72141

== ENCOUNTER 2022-12-21 08:47 | Outpatient (CLI) | payer MEDICARE, SELFPAY ==
--- NOTE | 2022-12-21 | MR_ITS ---
WS: [id number] MRI HEAD WITH CONTRAST TECHNIQUE: Sagittal T1, T2 axial, T2 axial FLAIR, axial susceptibility weighted imaging, axial diffus ion weighted images, and coronal T2 images were obtained. Pre and post-T1 axial and post T1 coronal i mages. ADC and FSPGR images. CLINICAL INFORMATION: ANOSMIA COMPARISON: MRI December 19, 2019 FINDINGS: No evidence of restricted diffusion to suggest acute ischemia. Ventricular system and basal cisterns are patent. Moderate small vessel changes with moderate parenchymal volume loss. Mild small vessel changes in the kwadwo. Normal posterior fossa. Normal vascular flow voids at the skull base. No extra-axial fluid collection s. No evidence of mass or mass effect. Paranasal sinuses are well aerated. Mild mucosal thickening ma stoid tips. Normal posterior nasopharynx. Normal parapharyngeal fat. No hemosiderin on susceptibly weighted images. Normal optic chiasm and pituitary infundibulum. Tempor al lobes and hippocampal formations are normal in appearance. Normal cavernous sinuses and Meckel's c ave. No abnormal gadolinium enhancement. Chronic changes of prior right transverse sinus thrombosis previo usly discussed. Dural sinuses are otherwise normal. MR/MR head wo/w con [id number] IMPRESSION: 1. No evidence of restricted diffusion to suggest acute ischemia. 2. Moderate small vessel changes with moderate parenchymal volume loss. Small vessel changes in the kwadwo. This is similar in appearance to 2019. 3. No hemosiderin on susceptibly weighted images. 4. No abnormal intracranial enhancement. 5. 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 Dural venous sinuses otherwise appear patent
[2022-12-21] MEDS: gadobenate dimeglumine 20 mL vial 18 ML IV (09:46)
== END 2022-12-21 08:48 | disposition home or self-care (01) ==
PROVIDERS: PCP Internal Medicine; Visit Provider Internal Medicine
DX: R43.0 Anosmia (principal)
CPT/HCPCS: 70553; A9577

== ENCOUNTER → 2022-12-31 11:16 | Outpatient (BNVA) | payer MEDICARE, SELFPAY | PROVIDERS: PCP Internal Medicine; Visit Provider Physician Assistant | DX: M70.61 Trochanteric bursitis, right hip (principal); M70.62 Trochanteric bursitis, left hip; Z98.1 Arthrodesis status; Y93.B9 Activity, other involving muscle strengthening exercises | CPT/HCPCS: 72100; 99213 ==

== ENCOUNTER → 2023-01-28 11:27 | Outpatient (BNVA) | payer MEDICARE, SELFPAY | PROVIDERS: PCP Internal Medicine; Referring Provider Specialist; Visit Provider Specialist | DX: M79.601 Pain in right arm (principal); M79.602 Pain in left arm | CPT/HCPCS: 95860; 99202 ==

== ENCOUNTER → 2023-02-01 10:00 | Outpatient (BNVA) | payer MEDICARE, SELFPAY | PROVIDERS: PCP Internal Medicine; Visit Provider Anesthesiology Pain Medicine | DX: G89.29 Other chronic pain (principal); M16.0 Bilateral primary osteoarthritis of hip; M54.50 Low back pain, unspecified; M50.30 Other cervical disc degeneration, unspecified cervical region; M47.812 Spondylosis without myelopathy or radiculopathy, cervical region; R20.0 Anesthesia of skin; Z98.1 Arthrodesis status | CPT/HCPCS: 73521; 99205 ==

== ENCOUNTER 2023-02-02 15:09 | Outpatient (CLI) | payer MEDICARE, SELFPAY ==
--- NOTE | 2023-02-02 16:00 | MR_ITS ---
WS: [id number] MRI LUMBAR SPINE NONCONTRAST HISTORY: Chronic low back pain. RIGHT buttock pain. LEFT thigh pain. COMPARISON: 02/24/2022 TECHNIQUE: Sagittal and axial multisequence imaging is submitted. Advanced degenerative disc disease in the cervical and thoracic spine with spondylosis. No cord compr ession. Prior posterior lumbar fusion at L4-5. Mild RIGHT curvature lumbar spine. Disc spaces are significantly narrowed. Most significant degenerative changes at L2-3 and L3-4. L2 re trolisthesis by 2 mm. L4 anterolisthesis by 2 mm. Conus terminates normally at L1-2 disc level. L1-L2: Normal. L2-L3: Mild annular disc bulge with a shallow LEFT paracentral disc protrusion. Mild ligamentum flavu m and facet arthritis. Disc protrusion is new since the prior study. Very minimal central stenosis. L3-L4: Marked annular disc bulging and osteophytic ridging with facet and ligamentum flavum disease. Central disc protrusion contacts the ventral thecal sac, disc extends just inferior to the joint line .. Mild central and bilateral subarticular recess stenosis. Mild LEFT foraminal stenosis. L4-L5: Large posterior laminectomy defect. Thecal sac is patent. No stenosis identified. L5-S1: Mild disc bulging with a central disc protrusion. No stenosis. Paravertebral soft tissues are normal. MR/MR lumbar spine wo con* [id number] IMPRESSION: 1. Posterior lumbar fusion at L4-5 is new since 02/24/2022 with a large hemilami nectomy defect. Resolution of the previously described stenosis at L4-5. 2. Disc bulging with a central disc protrusion at L4-5 which has progressed si nce the prior study. Mild central and bilateral subarticular recess and foramin al stenosis. 3. New shallow LEFT paracentral disc protrusion at L2-3. Minimal central steno sis. 4. Mild central and bilateral subarticular recess and LEFT foraminal stenosis at L3-4. Central disc protrusion with caudad extension is contributing to the s tenosis. 5. Degenerative curvature lumbar spine with advanced degenerative disc disease most significant at L2-3 and L3-4.
== END 2023-02-02 15:10 | disposition home or self-care (01) ==
PROVIDERS: PCP Internal Medicine; Visit Provider Anesthesiology Pain Medicine
DX: M48.061 Spinal stenosis, lumbar region without neurogenic claudication; M51.26 Other intervertebral disc displacement, lumbar region
CPT/HCPCS: 72148; 73521

== ENCOUNTER → 2023-02-25 09:28 | Outpatient (BNVA) | payer MEDICARE, SELFPAY | PROVIDERS: PCP Internal Medicine; Visit Provider Anesthesiology Pain Medicine | DX: Z01.89 Encounter for other specified special examinations (principal); G89.29 Other chronic pain; M54.50 Low back pain, unspecified; M50.30 Other cervical disc degeneration, unspecified cervical region; M47.812 Spondylosis without myelopathy or radiculopathy, cervical region; M16.0 Bilateral primary osteoarthritis of hip; Z98.1 Arthrodesis status | CPT/HCPCS: 99215 ==

== ENCOUNTER → 2023-03-01 10:11 | Outpatient (BNVA) | payer MEDICARE, SELFPAY | PROVIDERS: PCP Internal Medicine; Visit Provider Specialist | DX: S82.852G Displaced trimalleolar fracture of left lower leg, subsequent encounter for closed fracture with delayed healing (principal); S82.62XG Displaced fracture of lateral malleolus of left fibula, subsequent encounter for closed fracture with delayed healing; X58.XXXD Exposure to other specified factors, subsequent encounter | CPT/HCPCS: 73610; 99213 ==

== ENCOUNTER → 2023-03-03 14:18 | Outpatient (BNVA) | payer MEDICARE, SELFPAY | PROVIDERS: PCP Internal Medicine; Visit Provider Anesthesiology Pain Medicine | DX: M16.11 Unilateral primary osteoarthritis, right hip (principal) | CPT/HCPCS: 20610; 77002; J1030; J3490 ==

== ENCOUNTER → 2023-03-16 13:57 | Outpatient (BNVA) | payer MEDICARE, SELFPAY | PROVIDERS: PCP Internal Medicine; Visit Provider Anesthesiology Pain Medicine | DX: M16.12 Unilateral primary osteoarthritis, left hip (principal) | CPT/HCPCS: 20610; 77002; J1030; J3490 ==

== ENCOUNTER → 2023-04-05 10:05 | Outpatient (BNVA) | payer MEDICARE, SELFPAY | PROVIDERS: PCP Internal Medicine; Visit Provider Anesthesiology Pain Medicine | DX: Z01.89 Encounter for other specified special examinations (principal); M50.30 Other cervical disc degeneration, unspecified cervical region; M47.812 Spondylosis without myelopathy or radiculopathy, cervical region; M51.26 Other intervertebral disc displacement, lumbar region; M48.061 Spinal stenosis, lumbar region without neurogenic claudication; Z98.1 Arthrodesis status; M16.0 Bilateral primary osteoarthritis of hip | CPT/HCPCS: 99214 ==

== ENCOUNTER → 2023-05-04 14:57 | Outpatient (BNVA) | payer MEDICARE, SELFPAY | PROVIDERS: PCP Internal Medicine; Visit Provider Anesthesiology Pain Medicine | DX: G89.29 Other chronic pain (principal); M54.16 Radiculopathy, lumbar region | CPT/HCPCS: 64483; 64484; J1100; J3490 ==

== ENCOUNTER → 2023-05-18 13:30 | Outpatient (BNVA) | payer MEDICARE, SELFPAY | PROVIDERS: PCP Internal Medicine; Visit Provider Anesthesiology Pain Medicine | DX: G89.29 Other chronic pain (principal); M54.16 Radiculopathy, lumbar region | CPT/HCPCS: 64483; 64484; J1100; J3490 ==

== ENCOUNTER → 2023-06-07 10:39 | Outpatient (BNVA) | payer MEDICARE, SELFPAY | PROVIDERS: PCP Internal Medicine; Visit Provider Specialist | DX: S82.852G Displaced trimalleolar fracture of left lower leg, subsequent encounter for closed fracture with delayed healing; M25.512 Pain in left shoulder; X58.XXXD Exposure to other specified factors, subsequent encounter | CPT/HCPCS: 73610; 99213 ==

== ENCOUNTER → 2023-06-08 10:46 | Outpatient (BNVA) | payer MEDICARE, SELFPAY | PROVIDERS: PCP Internal Medicine; Visit Provider Anesthesiology Pain Medicine | DX: G89.29 Other chronic pain (principal); M54.50 Low back pain, unspecified; Z01.89 Encounter for other specified special examinations; M50.30 Other cervical disc degeneration, unspecified cervical region; Z98.1 Arthrodesis status; M47.812 Spondylosis without myelopathy or radiculopathy, cervical region; M16.0 Bilateral primary osteoarthritis of hip | CPT/HCPCS: 99214 ==

== ENCOUNTER → 2023-08-11 11:31 | Outpatient (BNVA) | payer MEDICARE, SELFPAY | PROVIDERS: PCP Internal Medicine; Visit Provider Internal Medicine Cardiovascular Disease | DX: R42 Dizziness and giddiness (principal); R00.2 Palpitations; R00.1 Bradycardia, unspecified; I47.10 Supraventricular tachycardia, unspecified; I49.1 Atrial premature depolarization; I49.3 Ventricular premature depolarization | CPT/HCPCS: 93225 ==

== ENCOUNTER 2023-08-16 11:16 | Outpatient (CLI) | payer MEDICARE, SELFPAY ==
--- NOTE | 2023-08-16 11:45 | MR_ITS ---
WS: [id number] MRI LEFT SHOULDER NONCONTRAST TECHNIQUE: Sagittal T2, coronal T1, T2 and proton density imaging. Axial gradient PDE imaging. CLINICAL INFORMATION: prior injury, left shoulder pain COMPARISON: 2020 FINDINGS: Previously described paralabral cyst is similar in appearance measuring approximately 2.9 x 1.8 cm. D egenerative arthritis AC joint with mild downsloping acromion. Slight subacromial spurring. Tendinopa thy distal supraspinatus with chronic thinning. Infraspinatus appears intact. Teres minor appears intact. Normal subscapularis. Biceps tendon appears intact within the bicipital groove. Advanced arthritis glenohumeral articulation. Hypertrophic miller es involving the humeral head. Previously described anterior labral tear. Advanced degenerative narro wing at the glenohumeral articulation is similar in appearance. IMPRESSION: 1. Previously described anterior labral tear with paralabral cyst is similar in appearance. 2. Moderate degenerative arthritis AC joint with mild downsloping acromion with slight impingement s upraspinatus. 3. Tendinopathy supraspinatus. 4. Rotator cuff is intact. 5. Biceps tendon intact within the bicipital groove. 6. Advanced degenerative narrowing involving the glenohumeral articulation with hypertrophic spurrin g along the medial humeral head similar to previous.
== END 2023-08-16 11:17 | disposition home or self-care (01) ==
PROVIDERS: PCP Internal Medicine; Visit Provider Specialist
DX: M19.012 Primary osteoarthritis, left shoulder (principal); M77.8 Other enthesopathies, not elsewhere classified
CPT/HCPCS: 73221; 99214

== ENCOUNTER → 2023-09-13 14:53 | Outpatient (BNVA) | payer MEDICARE, SELFPAY | PROVIDERS: PCP Internal Medicine; Visit Provider Specialist | DX: M19.012 Primary osteoarthritis, left shoulder (principal) | CPT/HCPCS: 20610; 99214; J1100; J2795; J3301 ==

== ENCOUNTER → 2023-09-15 09:37 | Outpatient (BNVA) | payer MEDICARE, SELFPAY | PROVIDERS: PCP Internal Medicine; Visit Provider Nurse Practitioner | DX: M16.12 Unilateral primary osteoarthritis, left hip; M54.42 Lumbago with sciatica, left side; Z96.653 Presence of artificial knee joint, bilateral | CPT/HCPCS: 73502; 99214 ==

== ENCOUNTER 2023-10-06 10:32 | Outpatient (RCR) | payer MEDICARE, SELFPAY | END 2023-10-24 23:59 | disposition home or self-care (01) | LOC: SPT 10:32 | PROVIDERS: Visit Provider Nurse Practitioner | DX: M54.42 Lumbago with sciatica, left side (principal) | CPT/HCPCS: 97110; 97161 ==

== ENCOUNTER → 2023-10-11 10:50 | Outpatient (BNVA) | payer MEDICARE, SELFPAY | PROVIDERS: PCP Internal Medicine; Visit Provider Anesthesiology Pain Medicine | DX: G89.29 Other chronic pain; Z01.89 Encounter for other specified special examinations; M50.30 Other cervical disc degeneration, unspecified cervical region; Z98.1 Arthrodesis status; M47.812 Spondylosis without myelopathy or radiculopathy, cervical region; M16.0 Bilateral primary osteoarthritis of hip; M48.061 Spinal stenosis, lumbar region without neurogenic claudication; M51.26 Other intervertebral disc displacement, lumbar region | CPT/HCPCS: 99214 ==

== ENCOUNTER → 2023-10-14 13:24 | Outpatient (BNVA) | payer MEDICARE, SELFPAY | PROVIDERS: PCP Internal Medicine; Visit Provider Nurse Practitioner | DX: M25.572 Pain in left ankle and joints of left foot; G89.29 Other chronic pain; S82.62XS Displaced fracture of lateral malleolus of left fibula, sequela; S82.852S Displaced trimalleolar fracture of left lower leg, sequela; X58.XXXS Exposure to other specified factors, sequela; Z01.818 Encounter for other preprocedural examination | CPT/HCPCS: 36415; 73610; 80053; 85025; 99214 ==

== ENCOUNTER 2023-10-25 06:00 | Outpatient (RCR) | payer MEDICARE, SELFPAY | END 2023-11-24 23:59 | disposition home or self-care (01) | LOC: SPT 06:00 | PROVIDERS: PCP Internal Medicine; Visit Provider Nurse Practitioner | DX: M54.50 Low back pain, unspecified (principal) | CPT/HCPCS: 97110 ==

== ENCOUNTER 2023-11-09 08:54 | Day surgery (SDC) | payer MEDICARE, SELFPAY ==
[2023-11-09] VITALS (14 sets, daily range): BP systolic 117–176; BP diastolic 64–93; PULSE 69–88; RESP 16–17; TEMP 36.1–36.4; O2SAT 90–100; BMI 35.9
--- NOTE | 2023-11-09 | XR_ITS ---
WS: [id number] Exam: XR ankle LT 1V [id number] Date/Time of Exam: 11/09/2023 12:00 AM Reason For Exam: or pic, removal of hardware Single AP C-arm image of the LEFT ankle is submitted for evaluation. Comparison to prior exam 023. The image confirms removal of a medial cortical plate and multiple screws from the distal tibia. Ther e are healed fractures of the lower tibia and fibula. No other significant finding on this limited st udy.
[2023-11-09 09:45] LABS: Glucose Point of Care 101 mg/dL (70-110)
[2023-11-09] MEDS: acetaminophen 1,000 MG/100 ML PIGGYBACK 400 MG IV (09:46)
[2023-11-09] MEDS: CELEcoxib 200 mg Capsule 400 MG PO (09:47)
[2023-11-09] MEDS: sodium chloride 0.9% 1,000 ML 30 ML IV (09:47)
[2023-11-09] MEDS: gabapentin 300 mg Capsule PO (09:47)
--- NOTE | 2023-11-09 09:55 | P.HPUD_ITS ---
Surgery/Procedure H&P Update DATE OF PROCEDURE: November 09, 2023 DATE H&P PERFORMED: 10/14/23 H&P UPDATE INFORMATION: I have reviewed H&P completed within last 30 days, I have examined patient prior to procedure, No changes to prior documentation and H&P is in [facility] EMR on date indicated PLANNED PROCEDURE: Operation Date: 11/09/23 10:35 Proposed Procedures p eft ankle removal of orthopedic hardware 64754,Z96.9,S82.62XA,S82.852A(Left) - Daria Browning MD Related Problem List Diagnoses (1) Displaced trimalleolar fracture of left ankle: Qualifiers: Encounter type: sequela Fracture type: closed Qualified Code(s): S82.852S - Displaced trimalleolar fracture of left lower leg, sequela
--- NOTE | 2023-11-09 10:18 | P.ANESASSM_ITS ---
Pre-Anesthetic Assessment Height/Weight: Height 1.55 m Weight 86.183 kg Temp Pulse Resp BP Pulse Ox O2 Del Method 97.4 F L 83 17 162/88 97 Room Air 11/09/23 09:13 11/09/23 09:13 11/09/23 09:13 11/09/23 09:13 11/09/23 09:13 11/09/23 09:13 Operation Date: 11/09/23 10:35 Proposed Procedures p eft ankle removal of orthopedic hardware 55710,Z96.9,S82.62XA,S82.852A(Left) - Daria Browning MD Familial anesthetic complications: None Was Beta Lorin taken within 24 hours: N/A Was Clonidine taken within 24 hours: N/A Last intake: Intake Last Liquid Date 11/08/23 Last Liquid Time 18:00 Last Solid Date 11/08/23 Last Solid Time 18:00 Social No alcohol and No tobacco Exam alert, oriented x 3, clear to auscultation bilaterally and regular rate & rhythm Airway Mallampati: Class II Dentition: chipped Pulmonary Sleep Apnea CV/HEM Hypertension SVT Metabolic Diabetes Mellitus, Hyperlipidemia and Morbid Obesity Anesthetic Plan ASA status: 3 Anesthesia: General Risk of > 500 ml blood loss (7ml/kg in children): No Medications/Allergies Home Medications Medication Instructions Recorded Confirmed Last Taken Type glucosamine 500 1 cap PO QPM 11/23/19 11/09/23 11/08/23 History sp-nfsrwoxfh-ubixqsej comp 400 mg-D3 667 unit-C-Mn cap cranberry concentrate-ascorbic 1 cap PO QAM 11/24/19 11/09/23 11/08/23 History acid 4,200 mg-20 mg capsule CPAP #1 ea 03/25/21 10/14/23 Unknown Rx celecoxib 200 mg capsule (Celebrex) 200 mg PO BID #180 caps 11/26/21 11/08/23 11/08/23 Rx topiramate 50 mg tablet (Topamax) 50 mg PO QPM 06/01/22 11/09/23 11/08/23 History cyanocobalamin (vitamin B-12) 1,000 mcg PO QAM 08/06/22 11/08/23 11/08/23 History 1,000 mcg tablet (Vitamin B-12) magnesium oxide 400 mg PO QPM 10/11/08/23 11/07/23 History ikhrfhyq-arl-dfrkw acid 500 1 tab PO QAM 08/06/22 11/08/23 11/08/23 History mcg-lycopene 300 mcg-lutein 250 mcg tablet pregabalin 50 mg capsule See Rx Instructions .Route .COMPLEX 08/06/22 11/08/23 11/08/23 History amlodipine 2.5 mg tablet 2.5 mg PO DAILY #90 tabs 09/11/22 11/09/23 11/09/23 Rx atorvastatin 40 mg tablet 40 mg PO BEDTIME #90 tabs 09/11/22 11/09/23 11/08/23 Rx lansoprazole 30 mg capsule,delayed 30 mg PO BID 90 days #180 caps 09/11/22 11/09/23 11/09/23 Rx release levothyroxine 50 mcg tablet 50 mcg PO QAM #30 tabs 09/11/22 11/09/23 11/09/23 Rx losartan 100 mg tablet 100 mg PO QAM #90 tabs 09/11/22 11/08/23 11/08/23 Rx lace up ankle brace #1 ea 10/08/22 10/14/23 Unknown Rx cyclobenzaprine 7.5 mg tablet 7.5 mg PO TID PRN muscle spasm #21 09/15/23 11/08/23 Unknown Rx tabs oxybutynin chloride 5 mg 5 mg PO DAILY 11/08/23 11/08/23 11/08/23 History tablet,extended release 24 hr Allergies Allergy/AdvReac Type Severity Reaction Status Date / Time tetracycline AdvReac Intermediate HEADACHE Verified 11/09/23 09:04 AND NAUSEA lidocaine AdvReac Mild LYUDMILA Verified 11/09/23 09:04 IN GENERAL PALPATATIONS Current Medications Generic Name Dose Route Start Last Admin Trade Name Freq PRN Reason Stop Dose Admin Sodium Chloride 1,000 mls @ 30 mls/hr 11/09/23 09:00 11/09/23 09:47 Sodium Chloride 0.9% IV 11/10/23 08:59 30 mls/hr .Q24H BARNEY Administration PFSH Anesthesia Medical History (Updated 11/09/23 @ 09:56 by Daria Browning MD) Closed trimalleolar fracture of left ankle Lumbago with sciatica, left side Osteoarthritis of left hip Acquired hypothyroidism GERD (gastroesophageal reflux disease) Type 2 diabetes mellitus Essential hypertension with goal blood pressure less than 130/80 Chronic low back pain Dizziness Long-term current use of opiate analgesic Pain management contract signed Back pain associated with peripheral numbness Primary osteoarthritis of right knee Sleep apnea, obstructive Morbid obesity Surgical History History of total knee replacement (TKR) NOMAN TKA's History of ankle surgery Right - performed by Dr. Nelson Left - performed by Dr. Browning in 2021 H/O dilation and curettage Status post lumbar spinal fusion (~2021) Hx of hysterectomy Hx of knee surgery (~03/03/16) TOTAL RIGHT KNEE REPLACEMENT 03/03/16- DR BROWNING ARTHROSCOPIC KNEE SURGERY RIGHT SIDE- 05/16/14 DR BLAND TKA LT KNEE 2006 DR ALISHA DOW[place] Family History Family/Other Breast cancer Aunt Father Cancer MELANOMA Hypertension CAD (coronary artery disease) Heart disease Sister Heart disease Other Bipolar 1 disorder Denies family history of Colon cancer Ovarian cancer Diabetes Hyperlipidemia Anesthesia complication Bleeding disorder Uterine cancer Thyroid disease Stroke Social History Substance/Drug Use: current Other substance/drug use details: CBD OIL Data Anesthesia Cardiac Studies: Holter Monitor 08/11/23
[2023-11-09] MEDS: ceFAZolin 2,000 MG in sodium chloride 0.9% (plus) 50 ML 100 MG IV (10:45)
[2023-11-09] MEDS: ceFAZolin 1,000 mg SDV 1000 MG IRRIGATION (10:52)
--- NOTE | 2023-11-09 12:44 | PM.OP ---
Operative Report Date of procedure: November 09, 2023 Pre-op diagnosis: Retained painful hardware left ankle following open reduction internal fixation left trimalleolar ankle fracture Post-op diagnosis: Retained painful hardware left ankle following open reduction internal fixation left trimalleolar ankle fracture Post-op findings: Retained hardware anterior to posterior as well as medial Procedure done: Removal of retained orthopedic hardware via 2 incisions. 2 screws anterior to posterior and a plate and 3 screws medially. 2 incision hardware extraction Implants: None Specimens removed/disposition: Hardware, sent with patient Surgeon: Daria Browning MD Wet Pour Supervisor: Concepcion Hurt who services were required for retraction and positioning of the leg in addition to closure and completion of the surgical procedure Anesthesia: General (Per LMA, ASA 3) Estimated blood loss (mL): 5 Tourniquet time (min): 74 (At 250 mmHg) IV fluids (mL): 700 Urine output (mL): 0 (No Marinelli) Complications: None Findings: Healed fracture with anterior posterior hardware buried in the bone. Medial hardware in good position. Condition: stable Disposition: PACU (Then return to same-day surgery for discharge to home) Brief History: This 78-year-old woman presented to the office with complaints of pain secondary to her retained hardware following open reduction internal fixation of a left trimalleolar ankle fracture with date of surgery April 10, 2022. The patient complained of stiffness and pain, and was concerned that the hardware was causing this. Her retained hardware included 2 anterior posterior screws placed from anterior as well as 1 medial plate. The patient understood that this would be a 2 incision procedure, and she also understood that complete removal of hardware particularly the anterior and posterior may not be possible. She was consented for surgery in the office, and questions were answered. Procedure: Patient was seen in the preoperative holding area and left leg was marked. Patient was brought to the operating theater and placed on the operating room table. After undergoing adequate general anesthesia per LMA, the patient's left lower extremity was prepped and draped in usual fashion utilizing DuraPrep. The leg was draped free. Fluoroscopy was used throughout the surgical procedure. We did have a tourniquet high on the left lower extremity. This was elevated to 250 mmHg and total tourniquet time was 74 minutes. Tourniquet elevation followed exsanguination of the leg. A surgical pause was performed prior to elevation of the tourniquet. At the time of the surgical pause we identified the site and side of surgery as well as the patient's identity and availability of equipment. We also confirmed appropriate administration of IV antibiotics, Ancef 2 g. Following the above, an incision was made anterior to posterior with fluoroscopic guidance with care being taken to avoid the neurovascular structures. The 2 headless screws which had been placed were identified on x-ray. A K wire was placed from anterior to posterior through the screws requiring fluoroscopic guidance. An osteotome was then used to uncover the screws which were buried under the bone. We were able to isolate and remove both screws, however. After the screws were removed, the incision was closed. This incision was closed with 3-0 Monocryl in an interrupted fashion followed by 4-0 Monocryl in a subcuticular fashion. A second incision was made in the area of the patient's previous medial malleolar fracture. This incision followed the patient's original incision. It did require slight extension to allow full access to the lateral plate. The patient had a hook plate laterally along with 1 screw which was cannulated and included a washer. Initially, attention was directed to the hook plate. There were 3 screws in this plate which were removed uneventfully. Following removal of the screws, we were able to remove the plate once it was elevated from the bone. Following removal of the hook plate, we had access to the screw with a washer. Care was taken to remove this and the washer, and this was accomplished without difficulty. Confirmation of all hardware removal was accomplished with fluoroscopic imaging. Following this, the incision was closed with 2-0 Monocryl in an interrupted fashion followed by 4-0 Monocryl in a subcuticular fashion. Following the above, the wounds were dressed with Dermabond to each wound as well as Steri-Strips. OpSite's were placed over the wounds as well. This was followed by sterile soft roll and Ruslan wrap. The patient was returned to the recovery room in a satisfactory condition. She will be allowed to be weightbearing as tolerated. There were no complications. The patient will be discharged to home to follow-up in my office as scheduled. Related Problem List Diagnoses (1) Displaced trimalleolar fracture of left ankle: (2) Painful orthopaedic hardware:
[2023-11-09] MEDS: HYDROmorphone 1 mg/mL INJ 1 mL 0.5 MG IVP (13:00)
--- NOTE | 2023-11-09 13:55 | ANE.PACU2 ---
Inpatient post-anesthesia follow up: Airway intact: Yes Vital signs: Temperature 97.5 F Pulse Rate 76 Respiratory Rate 16 Blood Pressure 117/87 Pulse Oximetry 93 Oxygen Delivery Me thod Room Air Oxygen Flow Rate 6 Fraction of Inspir ed Oxygen Hydration adequate: Yes Nausea and vomiting: No Pain level: 1 Mental status: Baseline
[2023-11-09] MEDS: HYDROcodone-acetaminophen 5-325 mg Tablet 1 TAB PO (14:15)
== END 2023-11-09 15:16 | disposition home or self-care (01) ==
PROVIDERS: PCP Internal Medicine; Visit Provider Specialist
PROC: (CPT 20680; principal; 2023-11-09 10:35)
DX: T84.89XA Other specified complication of internal orthopedic prosthetic devices, implants and grafts, initial encounter (principal); Y82.9 Unspecified medical devices associated with adverse incidents; I10 Essential (primary) hypertension; E11.9 Type 2 diabetes mellitus without complications; E78.5 Hyperlipidemia, unspecified; E66.01 Morbid (severe) obesity due to excess calories; Z68.35 Body mass index [BMI] 35.0-35.9, adult; E03.9 Hypothyroidism, unspecified; G47.33 Obstructive sleep apnea (adult) (pediatric)
CPT/HCPCS: 20680; 36416; 73600; 76000; 82962; C1713; J0131; J0690; J1100; J1170; J2405; J2704; J3010; J7030

== ENCOUNTER → 2023-11-24 09:16 | Outpatient (BNVA) | payer MEDICARE, SELFPAY | PROVIDERS: PCP Internal Medicine; Visit Provider Nurse Practitioner | DX: Z98.890 Other specified postprocedural states (principal); T84.84XA Pain due to internal orthopedic prosthetic devices, implants and grafts, initial encounter; Y79.2 Prosthetic and other implants, materials and accessory orthopedic devices associated with adverse incidents | CPT/HCPCS: 99024 ==

== ENCOUNTER 2023-11-30 08:02 | Outpatient (CLI) | payer MEDICARE, SELFPAY ==
[2023-11-30 08:22] VITALS: BMI 37.8
--- NOTE | 2023-11-30 08:23 | NMCV_ITS ---
NM raghav perf SPECT r/s* [id number] Pratik Portillo Age: 78 Gender: F : 1945 Exam Date: 11/30/2023 09:06 Ordering Phys: Kendrick Villaseñor MD Technologist: SILVER Barnes Exam Location: [facility] Indications: CHEST PAIN STRESS TEST Please see separate stress test report in [facility] for full findings IMAGE PROTOCOL Rest/Stress 1 Lexiscan Day Radiopharmaceutical Dose (mCi) Administration Site Administered by Rest: Tc-99m 10.9 IV SILVER Luther Sestamibi Stress:Tc-99m 32.5 IV SILVER Barnes Sestamifrancoise Rest: 30-Nov-2023 60 Discovery 630 Stress: 30-Nov-2023 30 Discovery 630 0.4mg Lexiscan. Supine position only as patient was unable to lay prone. SPECT RESULTS Technical Quality: Excellent Raw Data Analysis: Normal Image Corrections: No attenuation or motion correction applied Summed Stress Score: 2 Summed Rest Score: 3 Summed Difference Score: 0 PERFUSION FINDINGS Small sized area of fixed perfusion defect seen in apical lateral and inferolateral vaughan. 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 FUNCTIONAL RESULTS (calculated via Gated SPECT) Stress Image LV EF (%): 85 Stress EDV (mL):65 TID: 0.97 Stress ESV (mL):10 FUNCTIONAL FINDINGS: There is normal left ventricular systolic function. IMPRESSIONS 1. 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 No evidence of ischemia. 2. LV systolic function is normal Johnny Finch MD (Electronically Signed) Final Date: 30 November 2023 16:56 S
--- NOTE | 2023-11-30 08:23 | ECG_ITS ---
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 Interpretive Statements NAME OF STUDY: LEXISCAN SESTAMIBI STRESS TEST INDICATION: [Cp on exertion , ] Procedure: At the baseline, the blood pressure was 145/75 mmHg with a heart rate of 68 bpm. The electrocardiogram showed normal sinus rhythm, left axis deviation with normal ST and T's. The Lexiscan was infused over a period of 20 seconds. A total of 0.4 mg of Lexiscan was infused. The stress phase was continued for a total of 5 minutes. Heart rate was at the end of stress phase was 80 bpm and a blood pressure of 121/59 mmHg. The EKG at the peak infusion revealed normal sinus rhythm with no significant ST-T wave changes. Sestamibi was injected 20 seconds after the Lexiscan infusion. Blood pressure at the end of recovery phase was 121/62 mmHg with a heart rate of 81 bpm. Conclusion: 1. Normal EKG response to Lexiscan infusion 2. No Lexiscan induced chest pain or cardiac arrhythmia. 3. Normal blood pressure and heart rate response. 4. Sestamibi/sestamibi perfusion scan pending; see separate report. Electronically Signed On 12-17-2023 11:36:52 CAT[employer]PILLAR [employer]CHANIC by Johnny Finch M.D. [id number]
[2023-11-30] MEDS: regadenoson 0.4 Mg/5 ml Syringe IVP (09:43)
[2023-11-30 09:49] VITALS: BP 121/62; PULSE 81
== END 2023-11-30 08:03 | disposition home or self-care (01) ==
LOC: CDL 08:03
PROVIDERS: PCP Internal Medicine; Visit Provider Internal Medicine
DX: R07.9 Chest pain, unspecified (principal); I25.2 Old myocardial infarction
CPT/HCPCS: 36415; 78452; 93017; 96374; A9500; J2785

== ENCOUNTER 2023-12-01 12:40 | Outpatient (CLI) | payer MEDICARE, SELFPAY ==
--- NOTE | 2023-12-01 12:53 | XR_ITS ---
WS: [id number] XR chest 2V* [id number] REASON FOR EXAM: CHEST PAIN ON EXERTION FINDINGS: Moderate tortuosity and ectasia of the thoracic aorta. Normal heart size. Calcified granulomas disease in both hemithoraces. No acute or subacute pulmonary parenchymal or pleu ral abnormality. Mild S-shaped scoliosis of the thoracic spine with mild degenerative spondylosis in the mid and lower thoracic spine. IMPRESSION: No acute chest abnormality.
== END 2023-12-01 12:41 | disposition home or self-care (01) ==
PROVIDERS: PCP Internal Medicine; Visit Provider Internal Medicine
DX: R07.89 Other chest pain (principal)
CPT/HCPCS: 71046

== ENCOUNTER → 2024-01-25 10:45 | Outpatient (BNVA) | payer MEDICARE, SELFPAY | PROVIDERS: PCP Internal Medicine; Visit Provider Registered Nurse Neonatal Intensive Care | DX: R06.00 Dyspnea, unspecified (principal) | CPT/HCPCS: 87426 ==

== ENCOUNTER 2024-02-28 12:52 | Outpatient (CLI) | payer MEDICARE, SELFPAY ==
--- NOTE | 2024-02-28 13:30 | MM_ITS ---
WS: [id number] BILATERAL 3D TOMOSYNTHESIS DIGITAL SCREENING MAMMOGRAPHY WITH CAD CLINICAL INFORMATION: Z12.31 - Encounter for screening mammogram for malignant ... HISTORY: Screening mammogram. No current complaints. COMPARISON: 2021 TECHNIQUE: Bilateral CC and MLO views. FINDINGS: Scattered fibroglandular densities bilaterally. No suspicious focal mass, asymmetry, calcifications, or architectural distortion. No evidence of malignancy. A few incidental benign calcifications. Vascu lar calcification. MM/[place] [id number] IMPRESSION: BI-RADS: 2-Benign FOLLOW UP: 1 Year Follow-up Recommend return to annual screening mammography.
== END 2024-02-28 12:53 | disposition home or self-care (01) ==
LOC: RAD 12:52
PROVIDERS: PCP Internal Medicine; Visit Provider Nurse Practitioner Women's Health
DX: Z12.31 Encounter for screening mammogram for malignant neoplasm of breast (principal)
CPT/HCPCS: 77063; 77067

== ENCOUNTER 2024-04-20 15:47 | Emergency (ER) | payer MEDICARE, SELFPAY ==
[2024-04-20 15:53] VITALS: BP 178/96; PULSE 61; RESP 15; TEMP 36.5; O2SAT 100; BMI 35.9
[2024-04-20 16:12] VITALS: BP 161/91; O2SAT 97
--- NOTE | 2024-04-20 16:13 | W.ED.GIBLEED ---
HPI - GI Bleed General: Chief complaint: GI Bleed Stated complaint: wanda, n/v, blood in stool Time Seen by Provider: 04/20/24 16:03 History of Present Illness: 78-year-old female with a history of GERD, type 2 diabetes, hypertension, chronic low back pain and obesity who presents to the emergency room with several days of diarrhea and weakness. She had some black stools and talked with her primary care physician who sent her to the emergency room because they were afraid that she might be having an upper GI bleed. No focal abdominal pain. No chest pain. No altered mental status. She says she has had some fevers at home. She is afebrile now Review of Systems Narrative: Constitutional symptoms: Negative except as documented in HPI. Skin symptoms: Negative except as documented in HPI. Eye symptoms: Negative except as documented in HPI. ENMT symptoms: Negative except as documented in HPI. Respiratory symptoms: Negative except as documented in HPI. Cardiovascular symptoms: Negative except as documented in HPI. Gastrointestinal symptoms: Negative except as documented in HPI. Genitourinary symptoms: Negative except as documented in HPI. Musculoskeletal symptoms: Negative except as documented in HPI. Neurologic symptoms: Negative except as documented in HPI. Psychiatric symptoms: Negative except as documented in HPI. Endocrine symptoms: Negative except as documented in HPI. [facility] ED PFSH: Medical History Closed trimalleolar fracture of left ankle Lumbago with sciatica, left side Osteoarthritis of left hip Acquired hypothyroidism GERD (gastroesophageal reflux disease) Type 2 diabetes mellitus Essential hypertension with goal blood pressure less than 130/80 Chronic low back pain Dizziness Long-term current use of opiate analgesic Pain management contract signed Back pain associated with peripheral numbness Primary osteoarthritis of right knee Sleep apnea, obstructive Morbid obesity Surgical History History of removal of retained hardware Surgery Date: 11/09/23 Surgery: Removal of retained orthopedic hardware via 2 incisions. 2 screws anterior to posterior and a plate and 3 screws medially. 2 incision hardware extraction. Surgeon: Dr. Daria Browning MD. History of total knee replacement (TKR) NOMAN TKA's History of ankle surgery Right - performed by Dr. Nelson Left - performed by Dr. Browning in 2021 H/O dilation and curettage Status post lumbar spinal fusion (~2021) Hx of hysterectomy Hx of knee surgery (~03/03/16) TOTAL RIGHT KNEE REPLACEMENT 03/03/16- DR BROWNING ARTHROSCOPIC KNEE SURGERY RIGHT SIDE- 05/16/14 DR BLAND TKA LT KNEE 2006 DR ALISHA DOW- [place] Family History Family/Other Breast cancer Aunt Father Cancer MELANOMA Hypertension CAD (coronary artery disease) Heart disease Sister Heart disease Other Bipolar 1 disorder Denies family history of Colon cancer Ovarian cancer Diabetes Hyperlipidemia Anesthesia complication Bleeding disorder Uterine cancer Thyroid disease Stroke Social History Smoking and tobacco/nicotine status: unknown if used tobacco/nicotine Physical Exam Narrative: EXAM NARRATIVE: General: Alert, no acute distress. Skin: Warm, dry. Head: Normocephalic, atraumatic. Neck: Supple, trachea midline. Eye: Extraocular movements are intact. Ears, nose, mouth and throat: mucosa moist. Cardiovascular: Regular, Normal peripheral perfusion. Respiratory: Lungs are clear to auscultation, respirations are non-labored, breath sounds are equal, Symmetrical chest wall expansion. Gastrointestinal: Soft, Nontender, Non distended Musculoskeletal: Normal ROM, no deformity. Neurological: Alert and oriented, No focal neurological deficit observed. Psychiatric: Cooperative, appropriate mood & affect. Course Vital Signs: Vital signs: Vital Signs Temperature 97.7 F 04/20/24 15:53 Pulse Rate 76 04/20/24 18:20 Respiratory Rate 15 04/20/24 18:20 Blood Pressure 114/82 04/20/24 17:50 Pulse Oximetry 96 04/20/24 18:20 Oxygen Delivery Me thod Room Air 04/20/24 15:53 MDM - GI Bleed Medical Decision Making Medical decision making: Differential diagnosis including but not limited to and based on the above HPI, review of systems and physical exam: Patient with concern for GI bleeding. Check a CBC and a BUN to evaluate for this. She is complaining weakness and fever so got a urinalysis, lactate and renal function. Concern for anemia, renal failure, infections Orders placed to evaluate differential diagnosis based on the above differential, HPI and physical exam EKG: Time 1719. Rate 73. Normal sinus rhythm, No ST-T changes, no ectopy, normal MI & QRS intervals, This was reviewed and interpreted by myself the ER physician at 1722 Lab Review: Laboratory results were reviewed and interpreted by myself the emergency room physician. Lab work is fairly unremarkable. No leukocytosis. Bicarb is little low at 19 which would reflect the diarrhea that she has had. BUN/creatinine are 14 and 0.7. No renal failure. Urinalysis appears normal. I reviewed the patient's medical record. Reexamination: Patient remained stable. No increased work of breathing. No altered mental status. We discussed the findings and she will follow with her primary doctor. Assessment and plan: Diarrhea Weakness - Discharged home - Discussed plan with patient. Answered any questions. - Evaluation and treatment of this problem were appropriate in the emergency setting. Lab Data 04/20/24 16:17 04/20/24 16:17 Laboratory Results WBC 8.35 10^3/uL (3.29-11.43) 04/20/24 16:17 RBC 4.27 10^6/uL (3.85-5.65) 04/20/24 16:17 Hgb 13.40 g/dL (11.27-16.99) 04/20/24 16:17 Hct 40.3 % (36-47) 04/20/24 16:17 MCV 94.4 fl (85-98) 04/20/24 16:17 MCH 31.4 pg (27-33) 04/20/24 16:17 MCHC 33.3 g/dL (30-55) 04/20/24 16:17 RDW 13.2 % (12.1-15.1) 04/20/24 16:17 Plt Count 222 10^3/cmm (157-399) 04/20/24 16:17 MPV 11.5 fL (7.4-10.4) H 04/20/24 16:17 Neut % (Auto) 71.6 % 04/20/24 16:17 Lymph % (Auto) 19.3 % 04/20/24 16:17 [place] % (Auto) 7.3 % 04/20/24 16:17 Eos % (Auto) 0.8 % 04/20/24 16:17 Baso % (Auto) 0.8 % 04/20/24 16:17 Neut # (Auto) 5.97 10^3/uL (1.8-7.7) 04/20/24 16:17 Lymph # (Auto) 1.6 10^3/uL (0.8-4.8) 04/20/24 16:17 [place] # (Auto) 0.6 10^3/uL (0.2-0.9) 04/20/24 16:17 Eos # (Auto) 0.1 10^3/uL (0.0-0.8) 04/20/24 16:17 Baso # (Auto) 0.1 10^3/uL (0.0-0.1) 04/20/24 16:17 Nucleated RBC % (auto) 0 % 04/20/24 16:17 Nucleated RBCs # 0.0 /100WBC 04/20/24 16:17 PT 13.50 SECONDS (12.1-14.9) 04/20/24 16:17 INR 1.00 (0.8-1.2) 04/20/24 16:17 APTT 23.1 SECONDS (23.9-36.7) L 04/20/24 16:17 Sodium 144 mmol/L (136-145) 04/20/24 16:17 Potassium 3.9 mmol/L (3.5-5.1) 04/20/24 16:17 Chloride 108 mmol/L (98-107) H 04/20/24 16:17 Carbon Dioxide 19 mmol/L (22-29) L 04/20/24 16:17 Anion Gap 20.9 (5-19) H 04/20/24 16:17 BUN 14 mg/dL (8-23) 04/20/24 16:17 Creatinine 0.7 mg/dL (0.5-0.9) 04/20/24 16:17 GFR Calculation Not Reportable 04/20/24 16:17 Glucose 102 mg/dL (65-115) 04/20/24 16:17 Calculated Osmolality 299 mOsm/kg (285-295) H 04/20/24 16:17 Lactic Acid 1.1 mmol/L (0.5-2.2) 04/20/24 16:17 Calcium 9.7 mg/dL (8.5-10.5) 04/20/24 16:17 Total Bilirubin 0.4 mg/dL (0.15-1.2) 04/20/24 16:17 AST 27 U/L (0-32) 04/20/24 16:17 ALT 17 U/L (0-33) 04/20/24 16:17 Alkaline Phosphatase 92 U/L (35-105) 04/20/24 16:17 C-Reactive Protein 5.5 mg/L (0.0-4.9) H 04/20/24 16:17 Total Protein 7.2 g/dL (6.6-8.7) 04/20/24 16:17 Albumin 4.3 g/dL (3.5-5.2) 04/20/24 16:17 Globulin 2.9 g/dL (1.3-4.6) 04/20/24 16:17 Urine Color Yellow (Yellow) 04/20/24 17:13 Urine Appearance Clear (CLEAR) 04/20/24 17:13 Urine pH 5 (5-7) 04/20/24 17:13 Ur Specific [place] 1.025 (1.005-1.030) 04/20/24 17:13 Urine Protein Neg (Negative) 04/20/24 17:13 Urine Glucose (UA) Norm (Normal) 04/20/24 17:13 Urine Ketones 1+ (Negative) H 04/20/24 17:13 Urine Blood Neg (Negative) 04/20/24 17:13 Urine Nitrate Negative 04/20/24 17:13 Urine Bilirubin Neg (Negative) 04/20/24 17:13 Urine Urobilinogen Norm mg/dL (Negative) 04/20/24 17:13 Ur Leukocyte Esterase Negative (Negative) 04/20/24 17:13 Urine RBC 0-4 /hpf (0-2) H 04/20/24 17:13 Urine WBC 0-4 /hpf (0-5) H 04/20/24 17:13 Ur Squamous Epith Cells 10-15 /hpf (0-5) H 04/20/24 17:13 Ur Transition Epith Cell 0-4 /hpf 04/20/24 17:13 Amorphous Sediment Not Reportable 04/20/24 17:13 Urine Bacteria None /hpf (NONE) 04/20/24 17:13 Urine Mucus None /hpf 04/20/24 17:13 No radiology studies performed this visit Discharge Plan Discharge Patient Disposition: Home Clinical Impression: Diarrhea, Loss of appetite Condition: Stable Prescriptions: No Action pccx-neywis-yqefbops-D3-C-Mn 500-400-667 mg-mg-unit capsule 1 cap PO QPM celecoxib [Celebrex] 200 mg capsule 200 mg PO BID Qty: 180 3RF Hold Instructions: Resume on 08/20/22. cranberry conc-ascorbic acid 4,200-20 mg capsule 1 cap PO QAM venlafaxine 150 mg tablet extended release 24hr 150 mg PO BID oxybutynin chloride 15 mg tablet extended release 24hr 15 mg PO DAILY Qty: 90 3RF estradiol [Estrace] 0.01 % (0.1 mg/gram) cream 1 g vaginal .three times weekly Qty: 42.5 3RF Rx Instructions: space out doses topiramate [Topamax] 50 mg tablet 50 mg PO QPM (DME) lace up ankle brace See Rx Instructions .Route .MEDSUPPLY Qty: 1 0RF Rx Instructions: As directed cyclobenzaprine 7.5 mg tablet 7.5 mg PO TID PRN (Reason: muscle spasm) Qty: 21 0RF Rx Instructions: 3 times a day as needed Vraylar 3 mg capsule 3 mg PO DAILY (DME) CPAP See Rx Instructions .Route .MEDSUPPLY Qty: 1 0RF Rx Instructions: CPAP TITRATION 9-13CM IF WATER WITH HEATED HUMIDITY lansoprazole 30 mg capsule,delayed release(DR/EC) 30 mg PO BID 90 Days Qty: 180 3RF amlodipine 2.5 mg tablet 2.5 mg PO DAILY Qty: 90 3RF atorvastatin 40 mg tablet 40 mg PO BEDTIME Qty: 90 3RF levothyroxine 50 mcg tablet 50 mcg PO QAM Qty: 30 0RF losartan 100 mg tablet 100 mg PO QAM Qty: 90 3RF betamethasone, augmented 0.05 % ointment See Rx Instructions .ROUTE .COMPLEX Qty: 50 0RF Dose Instruction: APPLY THIN FILM TWICE DAILY FOR 2-3 WEEKS THEN TWICE WEEKLY FOR SKIN IRRITATION Rx Instructions: APPLY THIN FILM TWICE DAILY FOR 2-3 WEEKS THEN TWICE WEEKLY FOR SKIN IRRITATION cyanocobalamin (vitamin B-12) [Vitamin B-12] 1,000 mcg Tablet 1,000 mcg PO QAM pregabalin 50 mg capsule See Rx Instructions .ROUTE .COMPLEX Rx Instructions: 50mg po qam and 100mg po qpm greyuvnh-kaf-BT-lycopen-lutein 500-300-250 mcg Tablet 1 tab PO QAM magnesium oxide 400 mg magnesium Tablet 400 mg PO QPM Discharge Orders: Discharge ED (Routine); Ordered 04/20/24 Ordered By: Rebeca Gimenez Referrals: Kendrick Villaseñor MD [Primary Care Provider] - 4-7 days Discharge Diet: Advance as tolerated Discharge Activity: Increase activity as tolerated Patient Instructions: Weakness (ED) Activity Restrictions/Additional Instructions: Thank you for choosing [facility] for your healthcare needs today. Please realize this is an emergency room and that we are providing you with a medical screening exam and this may not be complete and all inclusive of all the testing and or work up that you may need to determine your ailment or severity of your illness. You have been screened and evaluated and felt safe for discharge. Health conditions do change or evolve sometimes and as such it is important that you follow up with your Primary Doctor to be re checked, 3-5 days is a general good time frame for follow up. You are always welcome to return to the ED for re assessment if your symptoms are worsening or you have new concerns Coding Level of Care Code ED Car Seat Upholsterer for Deborah Dotson
[2024-04-20 16:45] LABS: Basophils # 0.1 10^3/uL (0.0-0.1); Basophils % 0.8 %; Eosinophils # 0.1 10^3/uL (0.0-0.8); Eosinophils % 0.8 %; Hematocrit 40.3 % (36-47); Lymphocytes # 1.6 10^3/uL (0.8-4.8); Lymphocytes % 19.3 %; Mean Corpuscular HGB Conc 33.3 g/dL (30-55); Mean Corpuscular Hemoglobin 31.4 pg (27-33); Mean Corpuscular Volume 94.4 fl (85-98); Mean Platelet Volume 11.5 fL (7.4-10.4); Monocytes # 0.6 10^3/uL (0.2-0.9); Monocytes % 7.3 %; Neutrophils # 5.97 10^3/uL (1.8-7.7); Neutrophils % 71.6 %; Nucleated Red Blood Cells % 0 %; Platelet Count 222 10^3/cmm (157-399); Red Blood Count 4.27 10^6/uL (3.85-5.65); Red Cell Distribution Width 13.2 % (12.1-15.1); White Blood Count 8.35 10^3/uL (3.29-11.43)
[2024-04-20 16:59] LABS: Partial Thromboplastin Time 23.1 SECONDS (23.9-36.7)
[2024-04-20 17:03] LABS: Alanine Aminotransferase 17 U/L (0-33); Albumin Level 4.3 g/dL (3.5-5.2); Alkaline Phosphatase 92 U/L (35-105); Blood Urea Nitrogen 14 mg/dL (8-23); C Reactive Protein 5.5 mg/L (0.0-4.9); Calcium 9.7 mg/dL (8.5-10.5); Carbon Dioxide 19 mmol/L (22-29); Chloride 108 mmol/L (98-107); Creatinine Clr Calc Pharmacy 59.6447; Globulin 2.9 g/dL (1.3-4.6); Glucose 102 mg/dL (65-115); Osmolality Calculated 299 mOsm/kg (285-295); Sodium 144 mmol/L (136-145); Total Bilirubin 0.4 mg/dL (0.15-1.2); Total Protein 7.2 g/dL (6.6-8.7)
[2024-04-20 17:04] LABS: Lactic Sepsis W/Reflex 1.1 mmol/L (0.5-2.2)
[2024-04-20 17:09] LABS: Anion Gap 20.9 (5-19); Aspartate Amino Transferase 27 U/L (0-32); Potassium 3.9 mmol/L (3.5-5.1)
--- NOTE | 2024-04-20 17:19 | ECG_ITS ---
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 Measurements Intervals [place] Rate: 73 P: 31 MD: 165 QRS: -47 QRSD: 101 T: 17 QT: 399 QTc: 440 Interpretive Statements SINUS RHYTHM LEFT AXIS DEVIATION [QRS AXIS < -30] INCOMPLETE RIGHT BUNDLE BRANCH BLOCK [90+ ms QRS DURATION, TERMINAL R IN V1/V2, 40+ ms S IN I/aVL/V4/V5/V6] POSSIBLE ANTERIOR MYOCARDIAL INFARCTION , OF INDETERMINATE AGE [30 ms Q WAVE IN V3/V4, OR R < 0.2 mV IN V4] Compared to ECG 06/28/2020 10:24:29 Left-axis deviation now present Right ventricular hypertrophy no longer present Left anterior fascicular block no longer present Myocardial infarct finding still present Electronically Signed On 04-21-2024 20:36:49 CDT by Agapito Palma M.D. [id number]
[2024-04-20 17:50] VITALS: BP 114/82; PULSE 77; RESP 18; O2SAT 96
[2024-04-20 18:10] LABS: Bilirubin Urine Neg (Negative); Blood Urine Neg (Negative); Glucose Urine UA Norm (Normal); Ketones Urine 1+ (Negative); Leukocyte Esterase Urine Negative (Negative); Nitrate Urine Negative; Protein Urine Neg (Negative); Specific Gravity, Urine 1.025 (1.005-1.030); Urine Appearance Clear (CLEAR); Urine Color Yellow (Yellow); Urobilinogen Urine Norm (Negative); pH Urine 5 (5-7)
[2024-04-20 18:12] LABS: Add Urine Culture? No; RBC Urine 0-4 /hpf (0-2); Transitional Epi Cells Urine 0-4 /hpf; WBC Urine 0-4 /hpf (0-5)
[2024-04-20 18:20] VITALS: PULSE 76; RESP 15; O2SAT 96
[2024-04-20 18:42] VITALS: PULSE 76; RESP 15; O2SAT 96
== END 2024-04-20 18:45 | disposition home or self-care (01) ==
PROVIDERS: Emergency Provider Emergency Medicine; PCP Internal Medicine
DX: R19.7 Diarrhea, unspecified (principal); R63.0 Anorexia; E11.9 Type 2 diabetes mellitus without complications; I10 Essential (primary) hypertension
CPT/HCPCS: 36415; 80053; 81001; 83605; 85025; 85610; 85730; 86140; 87040; 93005; 99284

== ENCOUNTER → 2024-05-17 09:31 | Outpatient (BNVA) | payer MEDICARE, SELFPAY | PROVIDERS: PCP Internal Medicine; Visit Provider Specialist | DX: M19.012 Primary osteoarthritis, left shoulder (principal); M12.812 Other specific arthropathies, not elsewhere classified, left shoulder; M25.712 Osteophyte, left shoulder | CPT/HCPCS: 73030 ==

== ENCOUNTER → 2024-05-31 10:52 | Outpatient (BNVA) | payer MEDICARE, SELFPAY | PROVIDERS: PCP Internal Medicine; Visit Provider Specialist | DX: M70.62 Trochanteric bursitis, left hip (principal); M16.0 Bilateral primary osteoarthritis of hip | CPT/HCPCS: 20610; 73502; 99214; J1100; J2795; J3301 ==

== ENCOUNTER → 2024-06-13 15:47 | Outpatient (BNVA) | payer MEDICARE, SELFPAY | PROVIDERS: PCP Internal Medicine; Visit Provider Nurse Practitioner Women's Health | DX: R30.0 Dysuria (principal) | CPT/HCPCS: 84315; 87086 ==

== ENCOUNTER 2024-06-22 10:09 | Outpatient (CLI) | payer MEDICARE, SELFPAY ==
--- NOTE | 2024-06-22 10:15 | MR_ITS ---
WS: [id number] MRI LEFT SHOULDER HISTORY: Chronic shoulder pain with decreased range of motion. COMPARISON: 08/16/2023 TECHNIQUE: Multiplanar sequences of the shoulder joint are submitted. Mild AC joint arthritis. Very minimal subacromial impingement. No os acromion. Normal position of the biceps tendon. Small amount of increased fluid in the biceps tendon sheath is similar to the prior s tudy. Mild atrophy of the supraspinatus muscle has progressed since the prior study. No muscle edema. Tendi nopathy in the distal supraspinatus tendon. Fluid within the distal supraspinatus tendon. This is typ ically seen with insertion site tears. No tear identified. There may be an occult tear. There is tend inopathy and fraying of the articular surface. Reidentified is the para labral cyst measuring 10 x 7 mm associated with the anterior labrum. Progression of degenerative changes along the glenoid. MR/MR shoulder LT wo con* [id number] IMPRESSION: 1. Progression of degenerative changes along the glenoid. Joint space narrowin g with loss of cartilage and small erosions. 2. Mild AC joint arthritis. 3. Tendinopathy in the distal supraspinatus tendon. Mild progression of tendon fraying along the articular surface. 4. Fluid extends interstitial along the supraspinatus tendon. This is often se en with insertion site tears. A tear is not identified. 5. Paralabral cyst associated with the inferior labrum reidentified. Suspect l abral tear. 6. Mild progression of supraspinatus atrophy.
== END 2024-06-22 10:10 | disposition home or self-care (01) ==
LOC: RAD 10:10
PROVIDERS: PCP Internal Medicine; Visit Provider Specialist
DX: M19.012 Primary osteoarthritis, left shoulder (principal); M75.82 Other shoulder lesions, left shoulder; M71.312 Other bursal cyst, left shoulder; M62.512 Muscle wasting and atrophy, not elsewhere classified, left shoulder
CPT/HCPCS: 73221

== ENCOUNTER → 2024-06-28 13:55 | Outpatient (BNVA) | payer MEDICARE, SELFPAY | PROVIDERS: PCP Internal Medicine; Visit Provider Specialist | DX: M19.012 Primary osteoarthritis, left shoulder (principal) | CPT/HCPCS: 99214 ==

== ENCOUNTER 2024-07-07 10:17 | Outpatient (RCR) | payer MEDICARE, SELFPAY | END 2024-07-24 23:59 | disposition home or self-care (01) | LOC: SPT 10:17 | PROVIDERS: Visit Provider Specialist | DX: M19.012 Primary osteoarthritis, left shoulder (principal) | CPT/HCPCS: 97161 ==

== ENCOUNTER 2024-07-10 12:55 | Outpatient (CLI) | payer MEDICARE, SELFPAY ==
--- NOTE | 2024-07-10 13:00 | XR_ITS ---
WS: [id number] SCREENING DEXA SCAN [employer] CLINICAL INFORMATION: Z78.0 - Asymptomatic menopausal state COMPARISON: 2021 FINDINGS: The LEFT forearm bone mineral density measures 0.864. This corresponds to a T score score of -0.1 and Z score of 2.3. Left femoral neck bone mineral density measures 1.021 g/cm2. This corresponds to a T score of 0.1 and Z score of 1.4. Right femoral neck bone mineral density measures 1.101 g/cm2. This corresponds to a T score 0.7of and Z score of 2.1. Mean femoral neck bone mineral density measures 1.061 g/cm2. This corresponds to a T score of 0.4 and Z score of 1.8. XR/XR DEXA axial skeleton* [id number] IMPRESSION: Normal bone mineralization. Patient's FRAX calculated 10 year probability for major osteoporotic fracture i s 14.6% and osteoporotic hip fracture is 2.1%. Bone mineral density in the femoral necks increased 12.4% since 2021
== END 2024-07-10 12:56 | disposition home or self-care (01) ==
PROVIDERS: Visit Provider Nurse Practitioner Women's Health
DX: Z13.820 Encounter for screening for osteoporosis (principal); Z78.0 Asymptomatic menopausal state
CPT/HCPCS: 77080

== ENCOUNTER 2024-07-25 06:30 | Outpatient (RCR) | payer MEDICARE, SELFPAY | END 2024-08-14 23:59 | disposition home or self-care (01) | LOC: SPT 06:30 | PROVIDERS: Visit Provider Specialist | DX: M19.012 Primary osteoarthritis, left shoulder (principal) | CPT/HCPCS: 97110 ==

== ENCOUNTER → 2024-08-30 09:12 | Outpatient (BNVA) | payer MEDICARE, SELFPAY | PROVIDERS: PCP Internal Medicine; Visit Provider Nurse Practitioner | DX: M25.512 Pain in left shoulder (principal); G89.29 Other chronic pain; M19.012 Primary osteoarthritis, left shoulder | CPT/HCPCS: 20610; 73030; 99214; J1100; J2795; J3301 ==

== ENCOUNTER → 2024-11-01 09:15 | Outpatient (BNVA) | payer MEDICARE, SELFPAY | PROVIDERS: PCP Internal Medicine; Visit Provider Nurse Practitioner | DX: M19.012 Primary osteoarthritis, left shoulder; M70.61 Trochanteric bursitis, right hip | CPT/HCPCS: 20610; 99214; J1100; J2795; J3301 ==

== ENCOUNTER → 2024-11-17 09:06 | Outpatient (BNVA) | payer MEDICARE, SELFPAY | PROVIDERS: PCP Internal Medicine; Visit Provider Nurse Practitioner | DX: M16.12 Unilateral primary osteoarthritis, left hip (principal); M70.62 Trochanteric bursitis, left hip; Z71.89 Other specified counseling | CPT/HCPCS: 20610; 99213; J1100; J2795; J3301 ==

== ENCOUNTER → 2025-01-09 12:44 | Outpatient (BNVA) | payer BC, SELFPAY | PROVIDERS: PCP Internal Medicine; Visit Provider Emergency Medicine | DX: R30.0 Dysuria (principal) | CPT/HCPCS: 81000 ==

== ENCOUNTER → 2025-01-18 14:53 | Outpatient (BNVA) | payer BC, SELFPAY | PROVIDERS: PCP Internal Medicine; Visit Provider Family Medicine | DX: E03.9 Hypothyroidism, unspecified (principal) | CPT/HCPCS: 85025 ==

== ENCOUNTER → 2025-01-19 10:31 | Outpatient (BNVA) | payer BC, SELFPAY | PROVIDERS: PCP Family Medicine; Visit Provider Family Medicine | DX: E03.9 Hypothyroidism, unspecified (principal); I10 Essential (primary) hypertension | CPT/HCPCS: 80053; 80061; 84439; 84443; 85025 ==

== ENCOUNTER → 2025-02-02 10:27 | Outpatient (BNVA) | payer MEDICARE, SELFPAY | PROVIDERS: PCP Family Medicine; Visit Provider Nurse Practitioner | DX: M70.62 Trochanteric bursitis, left hip (principal); M70.61 Trochanteric bursitis, right hip; Z71.89 Other specified counseling | CPT/HCPCS: 20610; J1100; J2795; J3301; J9999 ==

== ENCOUNTER → 2025-02-22 14:08 | Outpatient (BNVA) | payer MEDICARE, SELFPAY | PROVIDERS: PCP Family Medicine; Visit Provider Nurse Practitioner Family | DX: D22.61 Melanocytic nevi of right upper limb, including shoulder (principal); L72.0 Epidermal cyst; I78.1 Nevus, non-neoplastic; I83.91 Asymptomatic varicose veins of right lower extremity; L57.8 Other skin changes due to chronic exposure to nonionizing radiation; D48.5 Neoplasm of uncertain behavior of skin; L57.0 Actinic keratosis | CPT/HCPCS: 11102; 17000; 99203 ==

== ENCOUNTER 2025-03-07 10:40 | Outpatient (CLI) | payer MEDICARE, SELFPAY ==
--- NOTE | 2025-03-07 10:40 | MM_ITS ---
WS: [id number] BILATERAL 3D TOMOSYNTHESIS DIGITAL SCREENING MAMMOGRAPHY WITH CAD CLINICAL INFORMATION: Z12.31 - Encounter for screening mammogram for malignant ... HISTORY: Screening mammogram. No current complaints. COMPARISON: 2023 TECHNIQUE: Bilateral CC and MLO views. FINDINGS: Scattered fibroglandular densities bilaterally. No suspicious focal mass, asymmetry, calcifications, or architectural distortion. No evidence of malignancy. Incidental punctate calcifications. Vascular calcifications. MM/MM [facility] tomosynthesis [id number] IMPRESSION: DENSITY: There are scattered areas of fibroglandular density. BI-RADS: 2 - Benign. FOLLOW UP: 1 Year Follow-up Recommend return to annual screening mammography.
== END 2025-03-07 10:41 | disposition home or self-care (01) ==
PROVIDERS: PCP Family Medicine; Visit Provider Nurse Practitioner Women's Health
DX: Z12.31 Encounter for screening mammogram for malignant neoplasm of breast (principal); R92.323 Mammographic fibroglandular density, bilateral breasts; R92.1 Mammographic calcification found on diagnostic imaging of breast
CPT/HCPCS: 77063; 77067

== ENCOUNTER → 2025-05-07 10:28 | Outpatient (BNVA) | payer MEDICARE, SELFPAY | PROVIDERS: PCP Family Medicine; Visit Provider Nurse Practitioner | DX: M70.62 Trochanteric bursitis, left hip (principal); M19.012 Primary osteoarthritis, left shoulder | CPT/HCPCS: 20610; 99213; J1100; J2795; J3301; J9999 ==

== ENCOUNTER → 2025-05-11 10:10 | Outpatient (BNVA) | payer MEDICARE, SELFPAY | PROVIDERS: PCP Family Medicine; Visit Provider Nurse Practitioner | DX: M70.61 Trochanteric bursitis, right hip (principal); M19.011 Primary osteoarthritis, right shoulder; Z71.89 Other specified counseling | CPT/HCPCS: 20610; 99214; J1100; J2795; J3301; J9999 ==

== ENCOUNTER → 2025-06-18 10:55 | Outpatient (BNVA) | payer MEDICARE, SELFPAY | PROVIDERS: PCP Family Medicine; Visit Provider Dermatology | DX: L72.0 Epidermal cyst (principal); L73.8 Other specified follicular disorders; D22.39 Melanocytic nevi of other parts of face; I83.92 Asymptomatic varicose veins of left lower extremity; D04.62 Carcinoma in situ of skin of left upper limb, including shoulder | CPT/HCPCS: 17000; 17260; 99213 ==

== ENCOUNTER → 2025-08-17 11:32 | Outpatient (BNVA) | payer MEDICARE, SELFPAY | PROVIDERS: PCP Family Medicine; Visit Provider Nurse Practitioner | DX: M19.011 Primary osteoarthritis, right shoulder (principal); M70.61 Trochanteric bursitis, right hip; Z71.89 Other specified counseling | CPT/HCPCS: 20610; 99214; J1100; J2795; J3301; J9999 ==

== ENCOUNTER → 2025-08-20 14:03 | Outpatient (BNVA) | payer MEDICARE, SELFPAY | PROVIDERS: PCP Family Medicine; Visit Provider Nurse Practitioner | DX: M70.62 Trochanteric bursitis, left hip (principal); M19.012 Primary osteoarthritis, left shoulder; Z71.89 Other specified counseling | CPT/HCPCS: 20610; 99213; J1100; J2795; J3301; J9999 ==

== ENCOUNTER → 2025-09-05 11:29 | Outpatient (BNVA) | payer MEDICARE, SELFPAY | PROVIDERS: PCP Family Medicine; Visit Provider Family Medicine | DX: I10 Essential (primary) hypertension (principal); E03.9 Hypothyroidism, unspecified; Z86.39 Personal history of other endocrine, nutritional and metabolic disease | CPT/HCPCS: 80053; 80061; 84439; 84443; 85025; 86376 ==

== ENCOUNTER → 2025-10-08 11:51 | Outpatient (BNVA) | payer MEDICARE, SELFPAY | PROVIDERS: PCP Family Medicine; Visit Provider Family Medicine | DX: E03.9 Hypothyroidism, unspecified (principal); B19.10 Unspecified viral hepatitis B without hepatic coma; Z72.51 High risk heterosexual behavior | CPT/HCPCS: 86705; 86706; 86709; 86803; 87340; 87806 ==

== ENCOUNTER → 2025-10-16 08:55 | Outpatient (BNVA) | payer MEDICARE, SELFPAY | PROVIDERS: PCP Family Medicine; Visit Provider Nurse Practitioner Women's Health | DX: N90.89 Other specified noninflammatory disorders of vulva and perineum (principal) | CPT/HCPCS: 88305 ==